=== PATIENT | female | born 1990 | race Caucasian/White ===

== ENCOUNTER 2016-09-02 15:20 | Emergency (ER) | payer BC, OTHER ==
--- NOTE | 2016-09-02 16:03 | ED ---
General Adult HPI - General Chief complaint: Abdominal Pain Stated complaint: cough Time Seen by Provider: 09/02/16 15:49 Source: patient, RN notes reviewed Mode of arrival: ambulatory Limitations: no limitations - History of Present Illness Initial comments: Patient is a 26-year-old female who presents emergency room today with a chief complaint of cough congestion over the last week. She states she is worried about pneumonia as someone that she works with was diagnosed with walking pneumonia. States she's had a cough no sputum production. She states this started with a mild sore throat week ago which has gone away. States she still having this cough which is deep. She denies any other complaints. Does admit that she 17 weeks . States that she's felt some weird movements in her abdomen. Patient denies any other complaints or symptoms. Denies any vaginal bleeding or discharge. Patient denies any recent fever, chills, shortness of breath, chest pain, back pain, nausea or vomiting, numbness or tingling, dysuria or hematuria, constipation or diarrhea, headaches or visual changes, or any other complaints. - Related Data Home Medications Medication Instructions Recorded Confirmed Pnv with Ca,No.72/Iron/FA 1 tab PO DAILY 09/02/16 09/02/16 [ Plus Tablet] Allergies Allergy/AdvReac Type Severity Reaction Status Date / Time clarithromycin [From Biaxin] Allergy Rash/Hives Verified 09/02/16 15:51 Review of Systems ROS Statement: Those systems with pertinent positive or pertinent negative responses have been documented in the HPI. ROS Other: All systems not noted in ROS Statement are negative. Past Medical History Past Medical History: No Reported History History of Any Multi-Drug Resistant Organisms: None Reported Past Surgical History: Section Past Psychological History: No Psychological Hx Reported Smoking Status: Never smoker Past Alcohol Use History: None Reported, Occasional Past Drug Use History: None Reported General Exam - General Exam Comments Initial Comments: General: The patient is awake and alert, in no distress, and does not appear acutely ill. Eye: Pupils are equal, round and reactive to light, extra-ocular movements are intact. No nystagmus. There is normal conjunctiva bilaterally. No signs of icterus. Ears, nose, mouth and throat: There are moist mucous membranes and no oral lesions. Neck: The neck is supple, there is no tenderness or JVD. Cardiovascular: There is a regular rate and rhythm. No murmur, rub or gallop is appreciated. Respiratory: Lungs are clear to auscultation, respirations are non-labored, breath sounds are equal. No wheezes, stridor, rales, or rhonchi. Gastrointestinal: Soft, non-distended, non-tender abdomen without masses or organomegaly noted. There is no rebound or guarding present. No CVA tenderness. Bowel sounds are unremarkable. Musculoskeletal: Normal ROM, no tenderness. Strength 5/5. Sensation intact. Pulses equal bilaterally 2+. Neurological: A&O x 3. CN II-XII intact, There are no obvious motor or sensory deficits. Coordination appears grossly intact. Speech is normal. Skin: Skin is warm and dry and no rashes or lesions are noted. Psychiatric: Cooperative, appropriate mood & affect, normal judgment. Limitations: no limitations Course Vital Signs 09/02/16 15:40 Temperature 98.9 F Pulse Rate 90 Respiratory 20 Rate Blood Pressure 140/72 O2 Sat by Pulse 100 Oximetry Medical Decision Making - Medical Decision Making Patient's heart tones 150s. Patient denies any shortness of breath. No pleuritic pain. Vitals are stable. Patient does admit to cough congestion started with a sore throat. It was discussed about possible bronchitis. Was discussed about x-ray. Patient's 17 weeks . No vaginal bleeding or discharge. Patient denies most likely viral infection. She states like to hold on x-ray. Hold any antibiotics. Comfortable following up over the next 2 days. Advised return if any symptoms increase or worsen. Disposition Clinical Impression: Upper respiratory infection Disposition: HOME SELF-CARE Condition: Good Instructions: Upper Respiratory Infection (ED) Additional Instructions: Please follow-up with family doctor in the next 2 days of symptoms have not improved. Please return to emergency room if the symptoms increase or worsen or for any other concerns. Time of Disposition: 17:20
[2016-09-02 17:33] VITALS: BP 121/67; PULSE 69; RESP 18; TEMP 97.3
== END 2016-09-02 17:32 | disposition home or self-care (01) ==
LOC: EC 15:20
DX: O99.512 Diseases of the respiratory system complicating pregnancy, second trimester (principal); J06.9 Acute upper respiratory infection, unspecified; Z3A.17 17 weeks gestation of pregnancy; Z88.2 Allergy status to sulfonamides
CPT/HCPCS: 99283

== ENCOUNTER 2017-02-01 07:51 | Inpatient (IN) | payer BC, OTHER ==
[2017-02-01] MEDS ORDERED: CITRIC ACID-SODIUM CITRATE 15 ML CUP PO ONE (08:31)
[2017-02-01] MEDS ORDERED: LACTATED RINGERS 1,000 ML IV ONE (08:31)
[2017-02-01 08:46] LABS: Basophils % (A) 0 %; CHCM 33.4; Eosinophils # (A) 0.1 k/uL (0-0.7); Eosinophils % (A) 1 %; HCT 33.8 % (34.0-46.0); HDW 3.24; HGB 11.3 gm/dL (11.4-16.0); Luc # (Auto) 0.16; Luc % (Auto) 2; Lymphocytes # (A) 1.4 k/uL (1.0-4.8); Lymphocytes % (A) 18 %; MCH 29.1 pg (25.0-35.0); MCHC 33.4 g/dL (31.0-37.0); MCV 87.1 fL (80.0-100.0); Mean Platelet Volume 8.1; Monocytes # (A) 0.4 k/uL (0-1.0); Monocytes % (A) 6 %; Neutrophils # (A) 5.7 k/uL (1.3-7.7); Neutrophils % (A) 74 %; RBC 3.88 m/uL (3.80-5.40); RDW 14.8 % (11.5-15.5); WBC 7.7 k/uL (3.8-10.6); WBC (Perox) 7.98
[2017-02-01 08:59] VITALS: BMI 45.2
[2017-02-01] MEDS ORDERED: ceFAZolin 2 GM in SODIUM CHLORIDE 0.9% 100 ML IVPB ONE (09:18)
--- NOTE | 2017-02-01 09:37 | P.HPOB ---
History of Present Illness H&P Date: 02/01/17 Chief Complaint: Here for elective repeat This is a 26-year-old white female 2 para 1001 EDC 02/08/2017 at 39 weeks gestation. Patient presents this morning for repeat low transverse section, she has been counseled thoroughly and is declining the option for . She had a prior section in 2009. She is declining option for tubal ligation. She has been having rare irregular contractions. history blood type is A+ rubella status immune. Group B strep cultures negative. Gonorrhea and chlamydia cultures, hepatitis B surface antigen, HIV testing, VDRL all negative. One-hour Glucola 104. Past medical history is essentially negative. Past surgical history section 2009. Current medications vitamins daily. ALLERGIES include clindamycin to which reports hives and rash. Social history patient is single, she is a nonsmoker, she denies alcohol or drug use with this . On exam this is a pleasant white female 5 foot 5 inches 272 pounds blood pressure 117/79 vital signs are otherwise stable and the patient is afebrile. The general physical exam is within normal limits. The abdomen is obviously gravid, fundal height is 40 cm, vertex presentation to Samuel's maneuvers. Cervix is long closed posterior. heart rate is consistent with reactive NST. Extremities reveal no edema. Chest is clear. Impression: 39 week intrauterine , previous section declining , here for repeat low transverse section, declining tubal ligation. Plan: We will proceed with repeat low transverse section. Patient is aware of all risks benefits and alternatives. All questions answered. Review of Systems Constitutional: Reports as per HPI Past Medical History Past Medical History: No Reported History History of Any Multi-Drug Resistant Organisms: None Reported Past Surgical History: Section Past Anesthesia/Blood Transfusion Reactions: No Reported Reaction Past Psychological History: No Psychological Hx Reported Smoking Status: Never smoker Past Alcohol Use History: None Reported Past Drug Use History: None Reported - Past Family History Mother Family Medical History: No Reported History Father Family Medical History: Hypertension Medications and Allergies Home Medications Medication Instructions Recorded Confirmed Type Pnv,Calcium 72/Iron/Folic Acid 1 tab PO DAILY 09/02/16 01/31/17 History [ Plus Tablet] Allergies Allergy/AdvReac Type Severity Reaction Status Date / Time clarithromycin [From Biaxin] Allergy Rash/Hives Verified 02/01/17 08:30 Exam - Vital Signs Vital signs: Vital Signs Temp Pulse Resp BP 02/01/17 08:29 97.3 F L 106 H 16 117/79 Intake and Output 01/31/17 02/01/17 02/01/17 22:59 06:59 14:59 Other: Weight 123.377 kg Patient Weight 02/02/17 06:59 Weight 123.377 kg See full dictation under HPI please Results Result Diagrams: 02/01/17 08:10 Abnormal Lab Results - Last 24 Hours (Table) 02/01/17 Range/Units 08:10 Hgb 11.3 L (11.4-16.0) gm/dL Hct 33.8 L (34.0-46.0) % Assessment and Plan Plan: For repeat low transverse section. All risks benefits and alternatives once again reviewed. Time with Patient: Less than 30
[2017-02-01] MEDS: LACTATED RINGERS 1,000 ML IV SCH (09:40)
[2017-02-01] MEDS ORDERED: PHENYLEPHRINE-0.9% NACL SYG 1 MG/10 ML SYRINGE ONE (09:45)
[2017-02-01] MEDS ORDERED: ePHEDrine 50 MG/ML 1 ML AMP ONE (09:45)
[2017-02-01] MEDS ORDERED: MORPHINE SULFATE (PF) 0.3 MG/0.3 ML SYR ONE (09:45)
[2017-02-01] MEDS ORDERED: NALBUPHINE 10 MG/ML AMPUL ONE (09:45)
[2017-02-01] MEDS ORDERED: OXYTOCIN 10 UNIT/ML 1 ML VIAL ONE (09:45)
[2017-02-01] MEDS ORDERED: ONDANSETRON 4 MG/2 ML VIAL ONE (09:45)
[2017-02-01] MEDS ORDERED: SIMETHICONE 80 MG CHEWABLE PO PRN (10:45)
[2017-02-01] MEDS ORDERED: ACETAMINOPHEN TAB 325 MG TAB PO PRN (10:45)
[2017-02-01] MEDS ORDERED: diphenhydrAMINE 50 MG CAP PO PRN (10:45)
[2017-02-01] MEDS ORDERED: ZOLPIDEM 5 MG TAB PO PRN (10:45)
[2017-02-01] MEDS ORDERED: diphenhydrAMINE 25 MG CAP PO PRN (10:45)
[2017-02-01] MEDS ORDERED: diphenhydrAMINE 50 MG/ML 1 ML VIAL IVP PRN ×2 (10:45)
[2017-02-01] MEDS ORDERED: NALOXONE 0.4 MG/ML 1 ML VIAL IV PRN (10:45)
[2017-02-01] MEDS ORDERED: HYDROmorphone PCA 5 MG/25 ML SYRINGE IV PRN (10:45)
[2017-02-01] MEDS ORDERED: ONDANSETRON 4 MG/2 ML VIAL IVP PRN (10:45)
[2017-02-01] MEDS ORDERED: METOCLOPRAMIDE 5 MG/ML 2 ML VIAL IVP PRN (10:45)
--- NOTE | 2017-02-01 10:45 | P.OP ---
Date of Procedure: 02/01/17 Preoperative Diagnosis: 39 week intrauterine , previous section, declining Postoperative Diagnosis: Repeat low transverse section, unremarkable, nuchal cord 1, liveborn male infant Procedure(s) Performed: Repeat low transverse section Implants: Anesthesia: spinal Surgeon: Taty Walden Editor Index #1: Selene Musa Estimated Blood Loss (ml): 600 IV fluids (ml): 600 Urine output (ml): 100 Pathology: other (Placenta) Condition: stable Disposition: PACU Indications for Procedure: Operative Findings: Description of Procedure: Patient is brought to the operating suite where a spinal analgesia with Duramorph is administered. Patient was placed in the dorsal supine position with left lateral uterine displacement. The abdomen is prepped and draped in usual sterile fashion. Analgesia is checked and noted to be adequate. The appropriate timeout is performed to assure proper patient and procedural identification. 2 g of Ancef are given. A low transverse skin incision is made in this is carried down through the subcutaneous tissue which is approximate 6 cm deep. The fascia is isolated, scored and extended bilaterally with curved Diego scissors. Peritoneum is next identified and incised, there is no bowel or bladder involvement. Bladder flap is brought down from previous scarring, bladder is well mobilized and at all times swept well from the operative field to avoid bladder and/or ureteral injury. A repeat low transverse uterine incision is made. This is carried down to this endometrial cavity, and extended bilaterally bluntly. Artificial amniorrhexis reveals clear fluid. is delivered in the right occiput transverse position. There is a nuchal cord 1. The oropharynx, and external nares and nasopharynx were all bulb suctioned. Patient is officially delivered of a male infant at 1005 hrs. Umbilical cord is doubly clamped and ligated, he is handed to waiting nurses for evaluation where scores of 8 and 9 at one and 5 minutes respectively are given. The placenta is delivered manually, it is inspected and noted to be intact with trivascular cord at 1006 hrs. The uterus is then externalized. The edges are grasped with Yen clamps. The uterus is swept clean with a sterile sponge to avoid any retained products of conception. The uterus is closed in a two-step fashion, first layer running locking, second layer imbricated, both with 0 Vicryl suture for excellent reapproximation and hemostasis. Bilateral tubes and ovaries are inspected and noted to be normal. Abdomen is suctioned with suction on guard and the uterus is gently placed back into the abdominal cavity. Bilateral gutters are inspected and cleaned. Peritoneum is allowed to close by secondary intention. Fascia is closed in a running stitch, over ligation in the midline. Subcutaneous tissue is irrigated , noted to be clean and dry. It is reapproximated with 3-0 Vicryl in a running fashion. 4-0 undyed Vicryl issues with a final subcuticular stitch for excellent reapproximation of the skin. Steri-Strips and Mastisol are applied to the wound. Sterile dressing is applied. Uterus is then massaged. No lochia is noted, therefore I dilate the cervix manually for a minimal to moderate amount of lochia. Urine is clear in the Li tube as well as in the bag. All sponge needle and enhancement counts are correct at the end of the procedure. Patient is brought back to the recovery room in stable condition with stable vital signs blood pressure 118/58, pulse 81, respirations 16, 100% O2 saturation. Complications none. Patient is requesting circumcision for her son.
[2017-02-01] MEDS: SENNOSIDES-DOCUSATE SODIUM 1 EACH TAB PO SCH (19:42)
[2017-02-01] MEDS: KETOROLAC 30 MG/ML 1 ML VIAL IVP PRN (19:42)
[2017-02-01 19:51] VITALS: RESP 16
[2017-02-02] MEDS: Acetaminophen-Codeine 300-30mg TAB PO PRN ×3 (00:24→20:30)
[2017-02-02] MEDS: KETOROLAC 30 MG/ML 1 ML VIAL IVP PRN (05:30)
[2017-02-02] MEDS: LACTATED RINGERS 1,000 ML IV SCH ×2 (06:04→06:05)
[2017-02-02 09:23] LABS: Basophils % (A) 0 %; CH 28.7; CHCM 31.5; Eosinophils % (A) 1 %; HGB 10.3 gm/dL (11.4-16.0); Hypochromasia Slight; Luc # (Auto) 0.09; Luc % (Auto) 1; Lymphocytes # (A) 1.1 k/uL (1.0-4.8); Lymphocytes % (A) 16 %; MCH 29.5 pg (25.0-35.0); MCHC 32.2 g/dL (31.0-37.0); MCV 91.5 fL (80.0-100.0); Mean Platelet Volume 8.5; Monocytes # (A) 0.4 k/uL (0-1.0); Monocytes % (A) 5 %; Neutrophils # (A) 5.3 k/uL (1.3-7.7); Neutrophils % (A) 77 %; WBC 6.9 k/uL (3.8-10.6); WBC (Perox) 7.41
--- NOTE | 2017-02-02 09:53 | P.PN ---
Subjective Principal diagnosis: Postoperative day #1 Slept well, lochia moderate, pain well controlled, no complaints, positive flatus. Objective - Vital Signs Vital signs: Vital Signs Temp 98.5 F 02/02/17 08:00 Pulse 80 02/02/17 08:00 Resp 16 02/02/17 08:00 BP 107/66 02/02/17 08:00 Pulse Ox 99 02/01/17 19:48 Intake & Output 02/01/17 02/02/17 02/02/17 18:59 06:59 18:59 Output Total 2200 500 Balance -2200 -500 Weight 123.377 kg Output: Urine 1600 500 Uretheral (Li) 600 Estimated Blood Loss 600 Other: # Voids 1 - Constitutional General appearance: Present: average body habitus, cooperative - EENT Eyes: Present: PERRLA ENT: Present: hearing grossly normal - Neck Neck: Present: normal ROM Thyroid: bilateral: normal size - Respiratory Respiratory: bilateral: CTA - Cardiovascular Rhythm: regular - Gastrointestinal General gastrointestinal: Present: normal bowel sounds - Genitourinary Genitourinary Comment(s): Undescended firm, midline, symmetric, nontender, 18 week size - Integumentary Integumentary Comment(s): Incision clean and dry, intact, Steri-Strips applied, well approximated. - Neurologic Neurologic: Present: CNII-XII intact - Musculoskeletal Musculoskeletal: Present: gait normal, strength equal bilaterally - Psychiatric Psychiatric: Present: A&O x's 3, appropriate affect, intact judgment & insight - Labs CBC & Chem 7: 02/02/17 08:05 Labs: Abnormal Lab Results - Last 24 Hours (Table) 02/02/17 Range/Units 08:05 RBC 3.50 L (3.80-5.40) m/uL Hgb 10.3 L (11.4-16.0) gm/dL Hct 32.0 L (34.0-46.0) % Assessment and Plan Plan: Continue postoperative care. Circumcision now. Likely discharge home tomorrow. Time with Patient: Less than 30
[2017-02-02] MEDS: IBUPROFEN 600 MG TAB PO PRN ×2 (10:18→17:41)
--- NOTE | 2017-02-02 15:38 | P.PN ---
Progress Note - Text Date:02/02 Time:1526 Patient is status post . Patient seen this morning with VAS score of 2. c/o of pruritus, c/o nausea/vomiting, comfortable and doing better today.
[2017-02-02] MEDS: SENNOSIDES-DOCUSATE SODIUM 1 EACH TAB PO SCH (19:53)
[2017-02-03] MEDS: IBUPROFEN 600 MG TAB PO PRN ×3 (00:46→11:36)
--- NOTE | 2017-02-03 07:02 | P.DS ---
Providers Date of admission: 02/01/17 07:51 Expected date of discharge: 02/03/17 Attending physician: Taty Walden Primary care physician: [facility] Course: This is a 26-year-old white female 2 para 1001 EDC 02/08/2017 at 39 weeks gestation. Patient presented after an unremarkable course for repeat section. She declined the option for . She declined the option for tubal ligation. Her blood type is A+, group B strep cultures negative. Please see my dictated history and physical for details. She underwent a low-transverse section and delivered a liveborn male infant with scores of 8 and 9 at one and 5 minutes respectively. weighed 7 lbs. 11 oz. or 3500 g. There was an estimated blood loss recorded of 600 mL's. There was a nuchal cord 1. Please see my dictated operative note for details. This morning the patient is doing well. She is voiding, ambulating and passing flatus without difficulty. Vital signs are stable and she is afebrile. Fundus is firm and in the midline, symmetric and 18 week size. Extremities are negative for edema. Breasts are not engorged. is doing well, circumcision has been performed. There is minimal to moderate lochia rubra. The abdominal incision is well approximated, clean and dry, Steri-Strips applied. Patient is being discharged home in very good condition. She will follow-up with me in the office in 2 weeks. I have reminded her no intercourse, tampons or douching. She will use [id number] ibuprofen products, 200 mg pills, for every 8 hours as needed for pain. I've asked her to call me with any fevers shakes or chills, foul smelling or copious lochia, with the passage of large blood clots, with any pain not alleviated by ibuprofen, or indeed with any concerns. She is bottlefeeding. She will continue taking her vitamin every day. No driving for 2 weeks. No heavy lifting. We have briefly reviewed the options for contraception and we will discuss this further in the office. Patient Condition at Discharge: Good Plan - Discharge Summary New Discharge Prescriptions: No Action Pnv,Calcium 72/Iron/Folic Acid [ Plus Tablet] 1 tab PO DAILY Discharge Medication List Pnv,Calcium 72/Iron/Folic Acid [ Plus Tablet] 1 tab PO DAILY 09/02/16 [ History] Follow up Appointment(s)/Referral(s): Taty Walden MD [STAFF PHYSICIAN] - 2 Weeks Discharge Disposition: HOME SELF-CARE
[2017-02-03] MEDS: Acetaminophen-Codeine 300-30mg TAB PO PRN (08:19)
[2017-02-03 08:55] VITALS: BP 118/75; PULSE 74; TEMP 97.5
== END 2017-02-03 12:00 | disposition home or self-care (01) | DRG 766 ==
LOC: 4FBP 07:51
PROVIDERS: ADMIT Obstetrics & Gynecology; ATTEND Obstetrics & Gynecology
PROC: 10D00Z1 Extraction of Products of Conception, Low, Open Approach (ICD-10-PCS; principal; 2017-02-01 10:00)
DX: O34.211 Maternal care for low transverse scar from previous cesarean delivery (principal); O69.81X0 Labor and delivery complicated by cord around neck, without compression, not applicable or unspecified; Z37.0 Single live birth; Z3A.39 39 weeks gestation of pregnancy; L29.9 Pruritus, unspecified; Z79.899 Other long term (current) drug therapy
CPT/HCPCS: 85025; 86850; 86900; 86901; 88307

== ENCOUNTER 2017-04-29 17:19 | Emergency (ER) | payer BC, OTHER ==
[2017-04-29] MEDS ORDERED: HYDROmorphone 1 MG/ML 1 ML SYRINGE IVP STA (17:55)
[2017-04-29] MEDS ORDERED: SODIUM CHLORIDE 0.9% 1,000 ML IV STA (17:55)
[2017-04-29] MEDS ORDERED: ONDANSETRON 4 MG/2 ML VIAL IVP STA (17:55)
--- NOTE | 2017-04-29 18:13 | ED ---
General Adult HPI - General Chief complaint: Abdominal Pain Stated complaint: Abd pain Time Seen by Provider: 04/29/17 17:40 Source: patient, RN notes reviewed, old records reviewed Mode of arrival: ambulatory Limitations: no limitations - History of Present Illness Initial comments: If complaint history of present illness a 27-year-old female here with a complaint of acute pain that started at 3 AM this morning. Followed by diarrhea. Patient doesn't past history of IBS.Loose stool for the past several hours. She describes it as sharp contraction-like pains. Emergency room temperature 100.7. - Related Data Previous Rx's Medication Instructions Recorded Ciprofloxacin HCl [Cipro] 500 mg PO Q12HR #10 tablet 04/29/17 Allergies Allergy/AdvReac Type Severity Reaction Status Date / Time clarithromycin [From Biaxin] Allergy Swelling Verified 04/29/17 18:11 Review of Systems ROS Statement: Those systems with pertinent positive or pertinent negative responses have been documented in the HPI. History of systems no visual acuity changes no headache no chest pain no shortness of breath. She has abdominal discomfort admitted abdomen suprapubic region. Nauseated but no vomiting loose stool earlier today. No blood noted in the stool. Decreased appetite. She did take ibuprofen without relief of discomfort. All systems were reviewed past medical problems no chronic medical problems. Other than 1 episode of IBS. Surgeries 2 C-sections last one approximately 10 weeks ago. Family history no cancers known to her. She has ALLERGIES to clarithromycin. Nonsmoker nondrinker. ROS Other: All systems not noted in ROS Statement are negative. Past Medical History Past Medical History: No Reported History History of Any Multi-Drug Resistant Organisms: None Reported Past Surgical History: Section Past Anesthesia/Blood Transfusion Reactions: No Reported Reaction Past Psychological History: No Psychological Hx Reported Smoking Status: Never smoker Past Alcohol Use History: None Reported Past Drug Use History: None Reported - Past Family History Mother Family Medical History: No Reported History Father Family Medical History: Hypertension General Exam - General Exam Comments Initial Comments: General: The patient is awake and alert, into abdominal discomfort. With fever. Vital signs temp 100.7 pulse 142 respiratory rate 16 pulse ox 99% room air blood pressure 126/81 Eye: Pupils are equal, round and reactive to light, extra-ocular movements are intact ; there is normal conjunctiva bilaterally. No signs of icterus. Ears, nose, mouth and throat: There are moist mucous membranes and no oral lesions. Neck: The neck is supple, there is no tenderness on the no anterior cervical lymphadenopathy, thyroid not enlarged. Cardiovascular: Tachycardic heart rate, 142. No murmur, rub or gallop is appreciated. Respiratory: Lungs are clear to auscultation, respirations are non-labored, breath sounds are equal. No wheezes, stridor, rales, or rhonchi. Gastrointestinal: Tenderness with deep palpation from the mid abdomen to the left and right lower quadrants. Back: There is no tenderness to palpation in the midline. There is no obvious deformity. No rashes noted. Musculoskeletal: Normal ROM, no tenderness, There is no pedal edema. There is no calf tenderness or swelling. Sensation intact. Pulses equal bilaterally 2+. Neurological: No neuro deficits complained of or noted. Skin: Skin is warm and dry and no rashes or lesions are noted. Limitations: no limitations Course Vital Signs 04/29/17 04/29/17 04/29/17 17:24 19:04 20:04 Temperature 100.7 F H 98.3 F 101.4 F H Pulse Rate 142 H 105 H 99 Respiratory 16 16 16 Rate Blood Pressure 126/81 130/59 135/65 O2 Sat by Pulse 99 99 99 Oximetry 04/29/17 22:44 Temperature 98.7 F Pulse Rate 81 Respiratory 16 Rate Blood Pressure 009/71 O2 Sat by Pulse 98 Oximetry Medical Decision Making - Medical Decision Making Medical decision making; the patient's white count 7.4 hemoglobin 12 medical 38 , potassium 4.0 with a BUN 11 creatinine 0.7 GFR greater than 60. Glucose 104. Amylase lipase normal limits. Urine clean no signs of infection. Urine test negative. Trays of the abdomen done and reviewed by radiologist his findings are there is a nonspecific, nonobstructive, bowel gas pattern. There was questionable bowel wall thickening noted in the ascending colon. This is only seen on one view. There is no evidence of impaction or obstruction. Phleboliths are noted in the pelvis. Impression; nonspecific bowel gas pattern. As read by Dr. Boles Patient has CT of the abdomen with IV and oral contrast. The positive findings include stomach and bowel. Wall thickening of the distal small bowel and terminal ileum seen with surrounding mild inflammatory changes, likely representing infectious versus inflammatory enteritis. No obstruction. No evidence of acute fluid collection. Normal appendix is seen. Spleen the spleen is mildly enlarged, measuring up to 14.4 cm in greatest craniocaudad dimensions, of unknown etiology. This was discussed with the patient she'll follow-up with family physician concerning this for further evaluation as needed. Final impression reactive mesenteric lymph nodes. Mild splenomegaly of unknown significance. Small amount of pelvic fluid which is likely physiologic versus related to the above-mentioned pathology. The above-mentioned pathology was wall thickening of the distal small bowel and terminal ileum with surrounding mild inflammatory changes, likely representing infectious versus inflammatory enteritis. And a probable 2.6 and left ovarian cyst as read by Dr. levy Patient states she is feeling better. She was rehydrated the emergency room. Labs as noted above were discussed with the patient she will be placed on Cipro 500 twice a day for 5 days - Lab Data Result diagrams: 04/29/17 18:21 04/29/17 18:21 Lab Results 04/29/17 04/29/17 04/29/17 Range/Units 18:21 18:21 18:21 WBC 7.4 (3.8-10.6) k/uL RBC 4.39 (3.80-5.40) m/uL Hgb 12.6 (11.4-16.0) gm/dL Hct 38.7 (34.0-46.0) % MCV 88.2 (80.0-100.0) fL MCH 28.7 (25.0-35.0) pg MCHC 32.6 (31.0-37.0) g/dL RDW 16.0 H (11.5-15.5) % Plt Count 270 (150-450) k/uL Neutrophils % 79 % Lymphocytes % 15 % Monocytes % 4 % Eosinophils % 1 % Basophils % 1 % Neutrophils # 5.8 (1.3-7.7) k/uL Lymphocytes # 1.1 (1.0-4.8) k/uL Monocytes # 0.3 (0-1.0) k/uL Eosinophils # 0.1 (0-0.7) k/uL Basophils # 0.0 (0-0.2) k/uL Sodium 137 (137-145) mmol/L Potassium 4.0 (3.5-5.1) mmol/L Chloride 103 (98-107) mmol/L Carbon Dioxide 25 (22-30) mmol/L Anion Gap 9 mmol/L BUN 11 (7-17) mg/dL Creatinine 0.70 (0.52-1.04) mg/dL Est GFR (MDRD) Af Amer >60 (>60 ml/min/1.73 sqM) Est GFR (MDRD) Non-Af >60 (>60 ml/min/1.73 sqM) Glucose 104 H (74-99) mg/dL Plasma Lactic Acid Marvin 1.2 (0.7-2.0) mmol/L Calcium 9.5 (8.4-10.2) mg/dL Total Bilirubin 0.7 (0.2-1.3) mg/dL AST 19 (14-36) U/L ALT 25 (9-52) U/L Alkaline Phosphatase 64 (38-126) U/L Total Protein 7.9 (6.3-8.2) g/dL Albumin 4.1 (3.5-5.0) g/dL Amylase 60 (30-110) U/L Lipase 104 (23-300) U/L Urine Color Urine Appearance (Clear) Urine pH (5.0-8.0) Ur Specific [place] (1.001-1.035) Urine Protein (Negative) Urine Glucose (UA) (Negative) Urine Ketones (Negative) Urine Blood (Negative) Urine Nitrite (Negative) Urine Bilirubin (Negative) Urine Urobilinogen (<2.0) mg/dL Ur Leukocyte Esterase (Negative) Urine HCG, Qual (Not Detectd) 04/29/17 04/29/17 Range/Units 19:30 19:30 WBC (3.8-10.6) k/uL RBC (3.80-5.40) m/uL Hgb (11.4-16.0) gm/dL Hct (34.0-46.0) % MCV (80.0-100.0) fL MCH (25.0-35.0) pg MCHC (31.0-37.0) g/dL RDW (11.5-15.5) % Plt Count (150-450) k/uL Neutrophils % % Lymphocytes % % Monocytes % % Eosinophils % % Basophils % % Neutrophils # (1.3-7.7) k/uL Lymphocytes # (1.0-4.8) k/uL Monocytes # (0-1.0) k/uL Eosinophils # (0-0.7) k/uL Basophils # (0-0.2) k/uL Sodium (137-145) mmol/L Potassium (3.5-5.1) mmol/L Chloride (98-107) mmol/L Carbon Dioxide (22-30) mmol/L Anion Gap mmol/L BUN (7-17) mg/dL Creatinine (0.52-1.04) mg/dL Est GFR (MDRD) Af Amer (>60 ml/min/1.73 sqM) Est GFR (MDRD) Non-Af (>60 ml/min/1.73 sqM) Glucose (74-99) mg/dL Plasma Lactic Acid Marvin (0.7-2.0) mmol/L Calcium (8.4-10.2) mg/dL Total Bilirubin (0.2-1.3) mg/dL AST (14-36) U/L ALT (9-52) U/L Alkaline Phosphatase (38-126) U/L Total Protein (6.3-8.2) g/dL Albumin (3.5-5.0) g/dL Amylase (30-110) U/L Lipase (23-300) U/L Urine Color Yellow Urine Appearance Clear (Clear) Urine pH 5.5 (5.0-8.0) Ur Specific [place] 1.013 (1.001-1.035) Urine Protein Negative (Negative) Urine Glucose (UA) Negative (Negative) Urine Ketones Negative (Negative) Urine Blood Negative (Negative) Urine Nitrite Negative (Negative) Urine Bilirubin Negative (Negative) Urine Urobilinogen <2.0 (<2.0) mg/dL Ur Leukocyte Esterase Negative (Negative) Urine HCG, Qual Not Detected (Not Detectd) Disposition Clinical Impression: Infectious enteritis Disposition: HOME SELF-CARE Condition: Fair Instructions: Abdominal Pain in Children (ED), Traveler's Diarrhea (ED), Nutrition Tips for Relief of Diarrhea (ED) Additional Instructions: Take Pepto-Bismol, increase fluids, take Cipro twice day for 5 days. Follow-up with his family physician for evaluation of mildly enlarged spleen. Take Tylenol for pain and fever Prescriptions: Ciprofloxacin HCl [Cipro] 500 mg PO Q12HR #10 tablet Referrals: Omero Carlos DO [Primary Care Provider] - 1-2 days Time of Disposition: 23:26
[2017-04-29 18:30] LABS: Basophils % (A) 1 %; CH 29.6; CHCM 33.7; Eosinophils # (A) 0.1 k/uL (0-0.7); Eosinophils % (A) 1 %; HCT 38.7 % (34.0-46.0); HDW 2.92; HGB 12.6 gm/dL (11.4-16.0); Luc # (Auto) 0.13; Luc % (Auto) 2; Lymphocytes # (A) 1.1 k/uL (1.0-4.8); Lymphocytes % (A) 15 %; MCH 28.7 pg (25.0-35.0); MCHC 32.6 g/dL (31.0-37.0); MCV 88.2 fL (80.0-100.0); Mean Platelet Volume 8.1; Monocytes # (A) 0.3 k/uL (0-1.0); Monocytes % (A) 4 %; Neutrophils # (A) 5.8 k/uL (1.3-7.7); Neutrophils % (A) 79 %; RBC 4.39 m/uL (3.80-5.40); WBC 7.4 k/uL (3.8-10.6)
[2017-04-29 18:40] LABS: ALT 25 U/L (9-52); AST 19 U/L (14-36); Alkaline Phosphatase 64 U/L (38-126); Amylase 60 U/L (30-110); Anion Gap 9 mmol/L; Blood Urea Nitrogen 11 mg/dL (7-17); Calcium 9.5 mg/dL (8.4-10.2); Carbon Dioxide 25 mmol/L (22-30); Chloride 103 mmol/L (98-107); Glucose 104 mg/dL (74-99); Non-African American GFR(MDRD) >60 (>60 ml/min/1.73 sqM); Sodium 137 mmol/L (137-145); Total Bilirubin 0.7 mg/dL (0.2-1.3); Total Protein 7.9 g/dL (6.3-8.2)
[2017-04-29 19:50] LABS: Appearance,Urine Clear (Clear); Bilirubin,Urine Negative (Negative); Glucose,Urine (UA) Negative (Negative); Ketones,Urine Negative (Negative); Leukocyte Esterase,Urine Negative (Negative); Nitrite,Urine Negative (Negative); PH, Urine 5.5 (5.0-8.0); Protein,Urine Negative (Negative); Specific Gravity,Urine 1.013 (1.001-1.035); UA Billing (MACRO vs. MICRO) CHEM; Urobilinogen,Urine <2.0 mg/dL (<2.0)
--- NOTE | 2017-04-29 20:08 | XR ---
Exam: Abdomen 2 view. TECHNIQUE: 3 views the abdomen were obtained. HISTORY: Abdominal pain. FINDINGS: There is a nonspecific, nonobstructive, bowel gas pattern. There is questionable bowel wall thickenin g noted in the ascending colon. This is only seen on one view. There is no evidence of impaction or o bstruction. Phleboliths are noted in the pelvis. IMPRESSION: Nonspecific bowel gas pattern.
[2017-04-29] MEDS ORDERED: KETOROLAC 30 MG/ML 1 ML VIAL IVP STA (20:12)
[2017-04-29] MEDS ORDERED: IOHEXOL 350 MG/ML 25 ML BOTTLE (ORAL USE) PO PRN (20:13)
[2017-04-29] MEDS ORDERED: RX INFO: IV CONTRAST WAS GIVEN 1 EACH MISC MISCELLANE PRN (20:13)
--- NOTE | 2017-04-29 23:11 | CT ---
EXAM: CT Abdomen and Pelvis With Intravenous Contrast CLINICAL HISTORY: Abdominal pain with diarrhea. TECHNIQUE: Axial computed tomography images of the abdomen and pelvis with intravenous contrast. CTDI is 50.40 mGy and DLP is 2072.10 mGy-cm. This CT exam was performed using one or more of the following dose reduction techniques: automated exposure control, adjustment of the mA and/or kV according to patient size, and/or use of iterative reconstruction technique. COMPARISON: No relevant prior studies available. FINDINGS: Lower thorax: No acute findings. ABDOMEN: Liver: Probable John's lobe is seen. No mass. Gallbladder and bile ducts: Unremarkable. No calcified stones. No ductal dilation. Pancreas: Unremarkable. No mass. No ductal dilation. Spleen: The spleen is mildly enlarged, measuring up to 14.4 in greatest craniocaudad dimension, of unknown significance. Adrenals: Unremarkable. No mass. Kidneys and ureters: Unremarkable. No solid mass. No hydronephrosis. Stomach and bowel: Wall thickening of the distal small bowel and terminal ileum is seen with surrounding mild inflammatory changes, likely representing infectious versus inflammatory enteritis. No obstruction. No evidence of acute fluid collection. Appendix: A normal appendix is seen. PELVIS: Bladder: Unremarkable. No mass. Reproductive: Probable 2.6 cm left ovarian cyst. Probable small additional fibroid in the anterior uterine body. ABDOMEN and PELVIS: Intraperitoneal space: A small amount of pelvic free fluid is seen, which is likely physiologic versus related to the above mentioned pathology. No free air. Bones/joints: No acute fracture. No dislocation. Soft tissues: Unremarkable. Vasculature: Unremarkable. No abdominal aortic aneurysm. Lymph nodes: Mildly prominent mesenteric lymph nodes are noted, predominantly involving the right lower quadrant, measuring up to 1.2 cm in short axis, likely reactive. Shotty retroperitoneal lymph nodes, of unknown significance. IMPRESSION: 1. Wall thickening of the distal small bowel and terminal ileum with surrounding mild inflammatory changes, likely representing infectious versus inflammatory enteritis. 2. Likely reactive mesenteric lymph nodes. 3. Mild splenomegaly, of unknown significance. 4. Small amount of pelvic free fluid, which is likely physiologic versus related to the above mentioned pathology. 5. Probable 2.6 cm left ovarian cyst.
[2017-04-29] MEDS ORDERED: CIPROFLOXACIN HCL 500 MG TAB PO STA (23:24)
[2017-04-29 23:35] VITALS: BP 127/60; PULSE 83; RESP 18; TEMP 98.9
== END 2017-04-29 23:45 | disposition home or self-care (01) ==
LOC: EC 17:19
DX: A09 Infectious gastroenteritis and colitis, unspecified (principal); I88.0 Nonspecific mesenteric lymphadenitis; R16.1 Splenomegaly, not elsewhere classified; Z88.1 Allergy status to other antibiotic agents
CPT/HCPCS: 36415; 80053; 82150; 83605; 83690; 85025; 81003; 81025; 87086; 74020; 74177; 99285; 96374; 96375 ×2; 96361; J2405; J1885; J1170; Q9967

== ENCOUNTER → 2017-08-30 | Outpatient (CLI) | payer BC, OTHER ==
[2017-08-30 13:02] LABS: Basophils % (A) 1 %; Eosinophils # (A) 0.2 k/uL (0-0.7); Eosinophils % (A) 2 %; HCT 41.4 % (34.0-46.0); HGB 12.5 gm/dL (11.4-16.0); Hypochromasia Slight; Lymphocytes # (A) 2.2 k/uL (1.0-4.8); Lymphocytes % (A) 27 %; MCHC 30.2 g/dL (31.0-37.0); MCV 92.8 fL (80.0-100.0); Mean Platelet Volume 7.6; Monocytes # (A) 0.3 k/uL (0-1.0); Monocytes % (A) 4 %; Neutrophils # (A) 5.2 k/uL (1.3-7.7); Neutrophils % (A) 65 %; Platelet Count 314 k/uL (150-450); RBC 4.46 m/uL (3.80-5.40); RDW 15.9 % (11.5-15.5)
[2017-08-30 13:31] LABS: ALT 45 U/L (9-52); AST 24 U/L (14-36); Albumin 4.4 g/dL (3.5-5.0); Alkaline Phosphatase 56 U/L (38-126); Anion Gap 11 mmol/L; Blood Urea Nitrogen 21 mg/dL (7-17); C Reactive Protein 19.3 mg/L (<10.0); Calcium 10.3 mg/dL (8.4-10.2); Carbon Dioxide 29 mmol/L (22-30); Chloride 102 mmol/L (98-107); Glucose 103 mg/dL (74-99); Potassium 4.5 mmol/L (3.5-5.1); Sodium 142 mmol/L (137-145); Total Bilirubin 0.4 mg/dL (0.2-1.3); Total Protein 8.4 g/dL (6.3-8.2)
[2017-08-30 13:45] LABS: T4, Free (Free Thyroxine) 1.23 ng/dL (0.78-2.19)
[2017-08-30 14:09] LABS: Erythrocyte Sedimentation Rate 42 mm/hr (0-20)
== END | disposition home or self-care (01) ==
LOC: LABWHC1 12:21
PROVIDERS: ATTEND Internal Medicine Gastroenterology
DX: R10.30 Lower abdominal pain, unspecified (principal); R53.83 Other fatigue
CPT/HCPCS: 36415; 80053; 83516; 84439; 84443; 84481; 85025; 85652; 86140

== ENCOUNTER → 2018-06-16 | Outpatient (CLI) | payer BC ==
[2018-06-16 14:22] VITALS: BP 97/59; PULSE 71; TEMP 97.8; BMI 52.7
--- NOTE | 2018-06-16 16:28 | P.HPBAR ---
Bariatric H&P - History & Physicial H&P Date: 06/16/18 History & Physicial: Visit/CC: sleeve consult Patient initial contact: Initial weight: 122.47 kg Initial weight in pounds: 270.00 Height: 5 ft Initial BMI: 52.7 Last weight: Current weight: 122.47 kg Current weight in pounds: 270.00 Current BMI: 52.7 [place] body weight (based on NIH guidelines): 45.359 kg Excess body weight loss: 0.0% The patient is a 28 year-old F who presents for Bariatric Assessment. The patient presents today for new patient sleeve gastrectomy consultation. She has had lifetime problems obesity. Her BMI is 53. She is requesting sleeve gastrectomy. Patient is attended informational seminar. She appears to be well versed in the sleeve gastrectomy. She understands the risks and complications of procedure including gastric perforation Past Medical History Past Medical History: No Reported History Additional Past Medical History / Comment(s): FREQUENT HEADACHES, LOWER BACK PAIN, STATES HAVING DIARRHEA , NAUSEA AND STOMACH PAIN., STATES CURRENT "COLD" WITH COUGH- PT TO NOTIFY DR Juan DAVILA. History of Any Multi-Drug Resistant Organisms: None Reported Past Surgical History: Section Past Anesthesia/Blood Transfusion Reactions: No Reported Reaction Past Psychological History: Anxiety, Depression Smoking Status: Never smoker Past Alcohol Use History: Occasional Past Drug Use History: None Reported - Past Family History Mother Family Medical History: No Reported History Father Family Medical History: Hypertension Surgical - Exam Vital Signs Temp Pulse BP 97.8 F 71 97/59 06/16/18 14:15 06/16/18 14:15 06/16/18 14:15 BMI 53 - General well developed - Eyes PERRL - ENT normal pinna - Neck no masses - Respiratory normal expansion - Cardiovascular Rhythm: regular - Abdomen Abdomen: soft, non tender Bariatric Assessment & Plan Plan: Morbid obesity with BMI 53. Patient be scheduled for EGD. We will perform sleeve gastrectomy once her insurance authorization is complete. Bariatric Checklist Checklist: Plan: Checklist: EGD: 1. Hiatal hernia: 2. H. Pylori: HgbA1c: Vitamin D: Smoking: Never smoker Primary care physician referral: Dr. binu Carlos ([facility]) Psychiatry clearance: Cardiology clearance: Sleep study: Diet journal: VTE risk score: VTE risk level: Rehab needs at discharge:
== END | disposition home or self-care (01) ==
LOC: BARWHC3 14:00
PROVIDERS: ATTEND Surgery
DX: E66.01 Morbid (severe) obesity due to excess calories (principal); Z68.43 Body mass index [BMI] 50.0-59.9, adult
CPT/HCPCS: 99211

== ENCOUNTER → 2018-07-07 | Outpatient (CLI) | payer BC ==
[2018-07-07 14:50] LABS: HCT 36.9 % (34.0-46.0); HGB 11.8 gm/dL (11.4-16.0); MCH 28.6 pg (25.0-35.0); MCHC 31.9 g/dL (31.0-37.0); MCV 89.5 fL (80.0-100.0); Mean Platelet Volume 7.3; Platelet Count 309 k/uL (150-450); RBC 4.12 m/uL (3.80-5.40); RDW 14.6 % (11.5-15.5); WBC 7.5 k/uL (3.8-10.6)
[2018-07-07 19:06] LABS: Albumin 4.5 g/dL (3.80-4.90); Albumin/Globulin Ratio 1.55 (1.20-2.10); Anion Gap 6.8 mmol/L (4.00-12.00); Calcium 9.3 mg/dL (8.7-10.3); Carbon Dioxide 27.2 mmol/L (21.6-31.8); Globulin 2.9 g/dL (2.1-3.7); Potassium 4.4 mmol/L (3.5-5.5); Total Bilirubin 0.3 mg/dL (0.3-1.2); Total Protein 7.4 g/dL (6.2-8.2)
[2018-07-07 22:57] LABS: Hemoglobin A1C 5.4 % (4.0-6.0)
== END ==
LOC: LABWHC1 13:49
PROVIDERS: ATTEND Surgery
DX: Z48.815 Encounter for surgical aftercare following surgery on the digestive system (principal); E66.01 Morbid (severe) obesity due to excess calories; E44.0 Moderate protein-calorie malnutrition; Z98.84 Bariatric surgery status
CPT/HCPCS: 36415; 80053; 82306; 82607; 83036; 84425; 84443; 85027; 93005

== ENCOUNTER 2018-07-11 09:40 | Day surgery (SDC) | payer BC ==
[2018-07-08 16:05] VITALS: BMI 45.2
[~2018-07-11 09:40] MED LIST: LACTATED RINGERS 1,000 ML IV SCH; LIDOCAINE 1% 20 ML VIAL (10MG/ML) FOR IV START INTRADERMA PRN
[2018-07-11 10:55] VITALS: RESP 16; TEMP 97.9
[2018-07-11] MEDS ORDERED: PROPOFOL 10 MG/ML 20 ML VIAL IV ONE (11:11)
[2018-07-11] MEDS ORDERED: LIDOCAINE 1% INJ 10MG/ML (20 ML MDV) ONE (11:11)
--- NOTE | 2018-07-11 11:12 | P.GSHP ---
History of Present Illness H&P Date: 07/11/18 Chief Complaint: GERD, obesity This a 28-year-old female undergoing workup for sleeve gastrectomy. The patient 's had some mild issues with GERD. Her BMI is 45. Past Medical History Past Medical History: No Reported History Additional Past Medical History / Comment(s): LOWER BACK PAIN, History of Any Multi-Drug Resistant Organisms: None Reported Past Surgical History: Section Past Anesthesia/Blood Transfusion Reactions: No Reported Reaction Smoking Status: Never smoker - Past Family History Mother Family Medical History: No Reported History Father Family Medical History: Hypertension Medications and Allergies Home Medications Medication Instructions Recorded Confirmed Type No Known Home Medications 07/08/18 07/11/18 History Allergies Allergy/AdvReac Type Severity Reaction Status Date / Time clarithromycin [From Biaxin] Allergy Intermediate Swelling Verified 07/11/18 10: 49 Surgical - Exam Vital Signs Temp Pulse Resp BP Pulse Ox 97.9 F 81 16 127/60 100 07/11/18 10:50 07/11/18 10:50 07/11/18 10:50 07/11/18 10:50 07/11/18 10:50 - General well developed, no distress - Eyes PERRL - ENT normal pinna - Neck no masses - Respiratory normal expansion - Cardiovascular Rhythm: regular - Abdomen Abdomen: soft, non tender Assessment and Plan Assessment: GERD, obesity. We'll perform EGD.
--- NOTE | 2018-07-11 11:19 | P.OP ---
Date of Procedure: 07/11/18 Preoperative Diagnosis: GERD Morbid obesity Postoperative Diagnosis: Mild antral gastritis Procedure(s) Performed: EGD Anesthesia: MAC Surgeon: Osmin Perez Pathology: other (Antrum) Condition: stable Disposition: PACU Description of Procedure: The patient's placed on the endoscopy table in the lateral position. She received IV sedation. The gastroscope placed oropharynx and passed in the esophagus and stomach. Scope was then placed through the pylorus. The first and second portion of the duodenum appeared normal. Scope was then brought back the antrum and this appeared mildly inflamed. A biopsies performed. The scope was then retroflexed and the remainder stomach appeared normal. There is no evidence of any significant hiatal hernia. The GE junction was at 47 is. The distal esophagus appeared mildly inflamed and a biopsies performed. The proximal esophagus appeared normal. Scope was withdrawn for patient.
[2018-07-11 12:21] VITALS: BP 111/77; PULSE 71
== END 2018-07-11 12:22 | disposition home or self-care (01) ==
LOC: ORWHC2ENDO 09:40
PROVIDERS: ATTEND Surgery
DX: K29.50 Unspecified chronic gastritis without bleeding (principal); K21.9 Gastro-esophageal reflux disease without esophagitis; E66.01 Morbid (severe) obesity due to excess calories; Z68.42 Body mass index [BMI] 45.0-49.9, adult; Z88.1 Allergy status to other antibiotic agents
CPT/HCPCS: 81025; 88305; 43239; J2001; J2704

== ENCOUNTER → 2020-01-25 | Outpatient (CLI) | payer BC ==
[2020-01-25 14:32] VITALS: BP 109/79; PULSE 89; RESP 20; TEMP 98.3; BMI 43.9
--- NOTE | 2020-01-25 14:44 | P.HPBAR ---
Bariatric H&P - History & Physicial H&P Date: 01/25/20 History & Physicial: Visit/CC: pre surg visit to see where she's at with requirements Patient initial contact: Initial weight: 122.47 kg Initial weight in pounds: 270.00 Height: 5 ft 6 in Initial BMI: 43.5 Last weight: Current weight: 123.468 kg Current weight in pounds: 272.20 Current BMI: 43.9 [place] body weight (based on NIH guidelines): 58.967 kg Excess body weight loss: The patient is a 29 year-old F who presents for Bariatric Assessment. Patient presents today for bariatric consultation. She is almost finished her 6 months of position directed weight loss visits. Patient's morbid obesity BMI 44. We'll in discussion regarding sleeve gastrectomy 1 over the risks and benefits of the procedure. Past Medical History Past Medical History: No Reported History Additional Past Medical History / Comment(s): FREQUENT HEADACHES, LOWER BACK PAIN, STATES HAVING DIARRHEA , NAUSEA AND STOMACH PAIN., STATES CURRENT "COLD" WITH COUGH- PT TO NOTIFY DR Juan DAVILA. History of Any Multi-Drug Resistant Organisms: None Reported Past Surgical History: Section Past Anesthesia/Blood Transfusion Reactions: No Reported Reaction Smoking Status: Never smoker - Past Family History Mother Family Medical History: No Reported History Father Family Medical History: Hypertension Surgical - Exam Vital Signs Temp Pulse Resp BP 98.3 F 89 20 109/79 01/25/20 14:30 01/25/20 14:30 01/25/20 14:30 01/25/20 14:30 - General well developed, well nourished, no distress - Eyes PERRL - ENT normal pinna - Neck no masses - Respiratory normal expansion - Cardiovascular Rhythm: regular - Abdomen Abdomen: soft, non tender Bariatric Assessment & Plan Plan: RBC, BMI 44. Patient will follow-up in one month. Once her insurance requirements have been met she'll be preauthorize for sleeve gastrectomy. Bariatric Checklist Checklist: Plan: Checklist: EGD: 1. Hiatal hernia: 2. H. Pylori: HgbA1c: Vitamin D: Smoking: Never smoker Primary care physician referral: Dr. binu Carlos ([facility]) Psychiatry clearance: Cardiology clearance: Sleep study: Diet journal: VTE risk score: VTE risk level: Rehab needs at discharge:
== END | disposition home or self-care (01) ==
LOC: BARWHC3 14:17
PROVIDERS: ATTEND Surgery
DX: E66.01 Morbid (severe) obesity due to excess calories (principal); Z68.41 Body mass index [BMI] 40.0-44.9, adult; R51 Headache; M54.5 Low back pain
CPT/HCPCS: 99211

== ENCOUNTER → 2020-03-07 | Outpatient (CLI) | payer BC ==
[2020-03-07 12:55] VITALS: BMI 43.0
--- NOTE | 2020-03-21 13:44 | P.HPBAR ---
Bariatric H&P - History & Physicial H&P Date: 03/07/20 History & Physicial: Visit/CC: Patient initial contact: Initial weight: 122.47 kg Initial weight in pounds: Height: 5 ft 6 in Initial BMI: Last weight: Current weight: 120.928 kg Current weight in pounds: Current BMI: 43.0 [place] body weight (based on NIH guidelines): 58.967 kg Excess body weight loss: The patient is a 29 year-old F who presents for Bariatric Assessment. Patient presents today for presurgical consultation. She has had lifetime problems obesity. Patient is morbidly obese. Her BMI is 43. Past Medical History Past Medical History: No Reported History Additional Past Medical History / Comment(s): FREQUENT HEADACHES, LOWER BACK PAIN, STATES HAVING DIARRHEA , NAUSEA AND STOMACH PAIN., STATES CURRENT "COLD" WITH COUGH- PT TO NOTIFY DR Juan DAVILA. History of Any Multi-Drug Resistant Organisms: None Reported Past Surgical History: Section Past Anesthesia/Blood Transfusion Reactions: No Reported Reaction Past Psychological History: Anxiety, Depression Past Alcohol Use History: Occasional Past Drug Use History: None Reported - Past Family History Mother Family Medical History: No Reported History Father Family Medical History: Hypertension Surgical - Exam - General well developed, well nourished, no distress - Eyes PERRL - ENT normal pinna - Neck no masses - Respiratory normal expansion - Cardiovascular Rhythm: regular - Abdomen Abdomen: soft, non tender Bariatric Assessment & Plan Plan: Morbid obesity. Patient had lifetime problems.. She is an excellent understanding sleeve history. We went over the risks and benefits of procedure including gastric staple line disruption, bleeding and scarring. Bariatric Checklist Checklist: Plan: Checklist: EGD: 1. Hiatal hernia: 2. H. Pylori: HgbA1c: Vitamin D: Smoking: Never smoker Primary care physician referral: Dr. binu Carlos ([facility]) Psychiatry clearance: Cardiology clearance: Sleep study: Diet journal: VTE risk score: VTE risk level: Rehab needs at discharge:
== END | disposition home or self-care (01) ==
LOC: BARWHC3 08:44
PROVIDERS: ATTEND Surgery
DX: E66.01 Morbid (severe) obesity due to excess calories (principal); Z71.3 Dietary counseling and surveillance
CPT/HCPCS: 97804

== ENCOUNTER → 2020-04-18 | Outpatient (CLI) | payer BC ==
[2020-04-18 14:10] VITALS: BP 140/84; PULSE 74; RESP 18; TEMP 98.8; BMI 42.4
--- NOTE | 2020-04-18 14:41 | P.HPBAR ---
Bariatric H&P - History & Physicial H&P Date: 04/18/20 History & Physicial: Visit/CC: new patient; sleeve surgery Patient initial contact: Initial weight: 122.47 kg Initial weight in pounds: 270.00 Height: 5 ft 6 in Initial BMI: 43.5 Last weight: Current weight: 119.295 kg Current weight in pounds: 263.00 Current BMI: 42.4 [place] body weight (based on NIH guidelines): 58.967 kg Excess body weight loss: 5.0% The patient is a 29 year-old F who presents for Bariatric Assessment. Patient presents today for presurgical consultation. Her BMI is 42. She's had lifetime problems obesity. She is developed comorbidities related to morbid obesity. Past Medical History Past Medical History: No Reported History Additional Past Medical History / Comment(s): FREQUENT HEADACHES, LOWER BACK PAIN, STATES HAVING DIARRHEA , NAUSEA AND STOMACH PAIN., STATES CURRENT "COLD" WITH COUGH- PT TO NOTIFY DR Juan DAVILA. History of Any Multi-Drug Resistant Organisms: None Reported Past Surgical History: Section Past Anesthesia/Blood Transfusion Reactions: No Reported Reaction Past Psychological History: Anxiety, Depression Smoking Status: Never smoker Past Alcohol Use History: Occasional Past Drug Use History: None Reported - Past Family History Mother Family Medical History: No Reported History Father Family Medical History: Hypertension Surgical - Exam Vital Signs Temp Pulse Resp BP Pulse Ox 98.8 F 74 18 140/84 97 04/18/20 14:05 04/18/20 14:05 04/18/20 14:05 04/18/20 14:05 04/18/20 14:05 - General well developed, well nourished, no distress - Eyes PERRL - ENT normal pinna - Neck no masses - Respiratory normal expansion - Cardiovascular Rhythm: regular - Abdomen Abdomen: soft, non tender Bariatric Assessment & Plan Plan: Morbid obesity. Patient has an excellent understanding of sleeve gastrectomy. We went over the risks and benefits of procedure including conversion to the open procedure and injury to the stomach liver spleen and issues gastric staple line such as bleeding scarring obstruction. The patient will follow up after EGD is performed. Bariatric Checklist Checklist: Plan: Checklist: EGD: 1. Hiatal hernia: 2. H. Pylori: HgbA1c: Vitamin D: Smoking: Never smoker Primary care physician referral: Dr. binu Carlos ([facility]) Psychiatry clearance: Cardiology clearance: Sleep study: Diet journal: VTE risk score: VTE risk level: Rehab needs at discharge:
== END | disposition home or self-care (01) ==
LOC: BARWHC3 13:50
PROVIDERS: ATTEND Surgery
DX: E66.01 Morbid (severe) obesity due to excess calories (principal); Z68.41 Body mass index [BMI] 40.0-44.9, adult
CPT/HCPCS: 99211

== ENCOUNTER → 2020-05-16 | Outpatient (CLI) | payer BC ==
[2020-05-16 16:11] LABS: Basophils % (A) 0 %; Eosinophils # (A) 0.2 k/uL (0-0.7); Eosinophils % (A) 2 %; HCT 38.4 % (34.0-46.0); HGB 12.3 gm/dL (11.4-16.0); Lymphocytes # (A) 2.3 k/uL (1.0-4.8); Lymphocytes % (A) 27 %; MCH 28.7 pg (25.0-35.0); MCV 89.8 fL (80.0-100.0); Mean Platelet Volume 7.4; Monocytes # (A) 0.4 k/uL (0-1.0); Monocytes % (A) 5 %; Neutrophils # (A) 5.5 k/uL (1.3-7.7); Neutrophils % (A) 65 %; Platelet Count 301 k/uL (150-450); RBC 4.28 m/uL (3.80-5.40); RDW 13.9 % (11.5-15.5); WBC 8.5 k/uL (3.8-10.6)
[2020-05-16 16:24] LABS: ALT 14 U/L (4-34); AST 21 U/L (14-36); African American GFR (CKD) >90 (>60 ml/min/1.73 sqM); Albumin 4.5 g/dL (3.5-5.0); Alkaline Phosphatase 59 U/L (38-126); Anion Gap 8 mmol/L; Blood Urea Nitrogen 19 mg/dL (7-17); Calcium 9.6 mg/dL (8.4-10.2); Carbon Dioxide 27 mmol/L (22-30); Chloride 102 mmol/L (98-107); Glucose 81 mg/dL (74-99); Non-African American GFR(CKD) >90 (>60 ml/min/1.73 sqM); Potassium 4.2 mmol/L (3.5-5.1); Sodium 137 mmol/L (137-145); Total Bilirubin 0.6 mg/dL (0.2-1.3); Total Protein 8.2 g/dL (6.3-8.2)
== END | disposition home or self-care (01) ==
LOC: LABPAT 15:31
PROVIDERS: ATTEND Surgery
DX: Z01.818 Encounter for other preprocedural examination (principal)
CPT/HCPCS: 36415; 80053; 85025

== ENCOUNTER 2020-05-25 09:15 | Inpatient (IN) | payer BC ==
[~2020-05-25 09:15] MED LIST changes: -LACTATED RINGERS 1,000 ML IV SCH; +LIDOCAINE 1% (10MG/ML) FOR IV START INTRADERMA PRN; -LIDOCAINE 1% 20 ML VIAL (10MG/ML) FOR IV START INTRADERMA PRN; +MIDAZOLAM 2 MG/2 ML VIAL IV PRN; +fentaNYL (PF) 50 MCG/ML 2 ML AMP IV PRN
--- NOTE | 2020-05-25 12:36 | P.GSHP ---
History of Present Illness H&P Date: 05/25/20 Chief Complaint: Morbid obesity The 30-year-old female presents today for laparoscopic sleeve gastrectomy. Patient has had complaints of obesity. She has developed severe coronary disease. Patient is well detailed on the procedure of laparoscopic sleeve gastrectomy. She was sent the risks and benefits of procedure. Past Medical History Past Medical History: No Reported History Additional Past Medical History / Comment(s): FREQUENT HEADACHES, LOWER BACK PAIN, STATES HAVING DIARRHEA , NAUSEA AND STOMACH PAIN. History of Any Multi-Drug Resistant Organisms: None Reported Past Surgical History: Section Additional Past Surgical History / Comment(s): EGD Past Anesthesia/Blood Transfusion Reactions: No Reported Reaction Additional Past Anesthesia/Blood Transfusion Reaction / Comment(s): no hx blood transfusion Past Psychological History: Anxiety, Depression Smoking Status: Never smoker Past Alcohol Use History: Occasional Past Drug Use History: None Reported - Past Family History Mother Family Medical History: No Reported History Father Family Medical History: Hypertension Medications and Allergies Home Medications Medication Instructions Recorded Confirmed Type Medroxyprogesterone Acetate 150 mg IM Q90D 01/25/20 05/25/20 History [Depo-Provera] Allergies Allergy/AdvReac Type Severity Reaction Status Date / Time clarithromycin [From Biaxin] Allergy Intermediate Swelling Verified 05/20/20 15:34 Penicillins Allergy Unknown Verified 05/20/20 15:34 Childhood Surgical - Exam BMI 40 - General well developed, well nourished, no distress - Eyes PERRL - ENT normal pinna - Neck no masses - Respiratory normal expansion - Cardiovascular Rhythm: regular - Abdomen Abdomen: soft, non tender Assessment and Plan Plan: Morbid obesity, BMI 40. We'll perform laparoscopic sleeve gastrectomy.
[2020-05-25] MEDS: LACTATED RINGERS 1,000 ML IV SCH ×2 (12:52→16:53)
[2020-05-25] MEDS: ENOXAPARIN 40 MG/0.4 ML SYRINGE SQ ONE ×2 (12:53→13:20)
[2020-05-25] MEDS: DEXAMETHASONE SOD PHOSPHATE 10 MG/ML 1 ML VIAL IV ONE ×2 (12:53→13:20)
[2020-05-25] MEDS ORDERED: ONDANSETRON 4 MG/2 ML VIAL IVP ONE ×2 (12:53→15:29)
[2020-05-25] MEDS ORDERED: SCOPOLAMINE 1.5MG/72HR PATCH TRANSDERM ONE ×2 (12:55→13:20)
[2020-05-25] MEDS ORDERED: ONDANSETRON 4 MG/2 ML VIAL ONE (12:58)
[2020-05-25] MEDS ORDERED: MIDAZOLAM 2 MG/2 ML VIAL IVP ONE ×2 (13:32→13:34)
[2020-05-25] MEDS ORDERED: SUCCINYLCHOLINE CHLORIDE 100 MG/5 ML SYR IV ONE (13:34)
[2020-05-25] MEDS ORDERED: GLYCOPYRROLATE 0.2 MG/ML 2 ML VIAL ONE (13:34)
[2020-05-25] MEDS ORDERED: KETOROLAC 15 MG/ML 1 ML VIAL ONE (13:34)
[2020-05-25] MEDS ORDERED: NEOSTIGMINE 1 MG/ML 10 ML VIAL ONE (13:34)
[2020-05-25] MEDS ORDERED: PROPOFOL 10 MG/ML 20 ML VIAL IV ONE (13:34)
[2020-05-25] MEDS ORDERED: fentaNYL (PF) 50 MCG/ML 2 ML AMP ONE (13:34)
[2020-05-25] MEDS ORDERED: ROCURONIUM 10 MG/ML (5 ML VIAL) IV ONE (13:34)
[2020-05-25] MEDS ORDERED: HYDROmorphone (PF) 1 MG/ML ONE (13:34)
[2020-05-25] MEDS ORDERED: KETAMINE 10 MG/ML 20 ML VIAL ONE (13:34)
[2020-05-25] MEDS ORDERED: LIDOCAINE 1% INJ 10MG/ML (20 ML MDV) ONE (13:34)
[2020-05-25] MEDS ORDERED: fentaNYL (PF) 50 MCG/ML 2 ML AMP IVP ONE (13:34)
[2020-05-25] MEDS ORDERED: MIDAZOLAM 2 MG/2 ML VIAL ONE (13:34)
[2020-05-25] MEDS ORDERED: BUPIVACAINE (PF) 0.25% 30 ML VIAL SQ ONE (14:15)
[2020-05-25] MEDS ORDERED: ONDANSETRON 4 MG/2 ML VIAL IVP PRN (14:51)
[2020-05-25] MEDS ORDERED: NALOXONE 0.4 MG/ML 1 ML VIAL IV PRN (14:51)
[2020-05-25] MEDS ORDERED: SIMETHICONE 40 MG/0.6 ML DROPS 2,000 MG/30 ML BOTTLE PO PRN (14:51)
[2020-05-25] MEDS ORDERED: diphenhydrAMINE 50 MG/ML 1 ML VIAL IVP PRN (14:51)
[2020-05-25] MEDS ORDERED: ACETAMINOPHEN IV (For NPO) 1,000 MG in EMPTY BAG 1 BAG IVPB ONE (14:51)
[2020-05-25] MEDS ORDERED: HYOSCYAMINE ORAL DROPS 1.875 MG/15 ML BOTTLE PO PRN (14:51)
--- NOTE | 2020-05-25 14:51 | P.OP ---
Date of Procedure: 05/25/20 Preoperative Diagnosis: Morbid obesity, BMI 40 Postoperative Diagnosis: Morbid obesity, BMI 40 Procedure(s) Performed: Laparoscopic sleeve gastrectomy Anesthesia: CATHLEEN Surgeon: Osmin Perez Estimated Blood Loss (ml): 5 Pathology: other (Stomach) Condition: stable Disposition: PACU Description of Procedure: The patient was placed on the operating room table in the supine position. She received general anesthesia and then was placed in dorsal lithotomy position. Her abdomen was prepped and draped in sterile fashion. The skin incision sites were anesthetized 1% local Xylocaine. And then the skin was incised with an 11 blade in the left lateral position. Using a blade less trocar under direct visualization the peritoneal cavity was entered. The abdomen was insufflated and then a 5 mm laparoscope was placed into the peritoneal cavity. A 5 mm trocar was placed in the right epigastric, and right lateral position. A 15 mm trocar was placed in the supra-umbilical position and another 5 mm trocar was placed in the left lateral position. The left lateral lobe of the liver was retracted. The stomach was visualized. The greater curvature of the stomach was then dissected using the Harmonic scissors. The dissection occurred approximately 5 cm from the pylorus to the level of the left rafael. There was no hiatal hernia seen. At this point a 40-[place] bougie dilator was placed the oropharynx and passed into the esophagus and into the stomach by the FIELD REVIEWER. The sleeve gastrectomy was performed by using the powered echelon stapler with a seam guard buttress material. Sequential firings of the stapler were performed. The gastric remnant was then brought out through the 15 mm trocar site. The dilator was withdrawn. And a orogastric tube was replaced into the stomach. The stomach was insufflated with 200 mL of methylene blue normal saline. There was no evidence of extravasation. The abdomen was irrigated there is no bleeding seen. The Ryan-Cristin device was used to close the 15 mm trocar with 0 Vicryl. Skin was closed with interrupted 3-0 Monocryl sutures once the trochars withdrawn. Dermabond dressing was applied. Patient was sent to recovery in stable condition.
[2020-05-25] MEDS: PROMETHAZINE INJ 25 MG/ML 1 ML VIAL IVPB ONE ×2 (15:21→15:44)
[2020-05-25] MEDS ORDERED: METOCLOPRAMIDE 5 MG/ML 2 ML VIAL IVP ONE (15:44)
--- NOTE | 2020-05-25 16:06 | XR ---
EXAMINATION TYPE: XR chest 1V portable DATE OF EXAM: 05/25/2020 COMPARISON: Prior chest x-ray 10/26/2015 HISTORY: Status post central venous catheter placement TECHNIQUE: Single frontal view of the chest is obtained. FINDINGS: There is been interval placement of a right jugular central venous catheter, distal tip is within the right atrium. There is no evident pneumothorax or pleural effusion. Lung volumes are low and the patient is rotated, there are scoliosis. Heart size may be accentuated by technique. Atelecta tic changes are suspected bilaterally. IMPRESSION: No evident comp occasions and status post central venous catheter placement. Distal tip of the catheter within the right atrium.
[2020-05-25] MEDS: diphenhydrAMINE 50 MG/ML 1 ML VIAL IVP ONE ×2 (16:07→16:18)
[2020-05-25] MEDS: ALBUTEROL NEBULIZED 2.5 MG/3 ML INHALATION SCH ×2 (16:21→19:13)
[2020-05-25] MEDS: 0.9% NACL WITH KCL 20 MEQ/L 1,000 ML IV SCH ×2 (16:54→17:11)
[2020-05-25] MEDS: KETOROLAC 15 MG/ML 1 ML VIAL IVP SCH (17:48)
[2020-05-25] MEDS: CLINDAMYCIN 900 MG in DEXTROSE 5% IN WATER 50 ML IVPB SCH ×2 (17:55)
[2020-05-25] MEDS: HYDROmorphone 1 MG/ML 1 ML SYRINGE IVP PRN (19:51)
[2020-05-26] MEDS: KETOROLAC 15 MG/ML 1 ML VIAL IVP SCH ×4 (00:50→17:59)
[2020-05-26] MEDS: CLINDAMYCIN 900 MG in DEXTROSE 5% IN WATER 50 ML IVPB SCH ×2 (00:51)
[2020-05-26] MEDS: 0.9% NACL WITH KCL 20 MEQ/L 1,000 ML IV SCH (00:51)
[2020-05-26] MEDS ORDERED: NALOXONE 0.4 MG/ML 1 ML VIAL IV PRN ×2 (01:56)
[2020-05-26 07:00] LABS: Basophils % (A) 0 %; Eosinophils # (A) 0.1 k/uL (0-0.7); Eosinophils % (A) 1 %; HCT 37.1 % (34.0-46.0); HGB 11.9 gm/dL (11.4-16.0); Lymphocytes # (A) 1.1 k/uL (1.0-4.8); Lymphocytes % (A) 15 %; MCH 28.6 pg (25.0-35.0); MCHC 31.9 g/dL (31.0-37.0); MCV 89.7 fL (80.0-100.0); Mean Platelet Volume 7.8; Monocytes # (A) 0.4 k/uL (0-1.0); Monocytes % (A) 5 %; Neutrophils # (A) 6.1 k/uL (1.3-7.7); Neutrophils % (A) 79 %; Platelet Count 242 k/uL (150-450); RBC 4.14 m/uL (3.80-5.40); WBC 7.7 k/uL (3.8-10.6)
[2020-05-26] MEDS: PANTOPRAZOLE 40 MG/10 ML VIAL IV SCH (08:01)
[2020-05-26] MEDS: HYDROmorphone 1 MG/ML 1 ML SYRINGE IVP PRN (08:01)
[2020-05-26] MEDS: ALBUTEROL NEBULIZED 2.5 MG/3 ML INHALATION SCH ×4 (08:02→19:14)
[2020-05-26] MEDS: ENOXAPARIN 40 MG/0.4 ML SYRINGE SQ SCH (08:02)
[2020-05-26] MEDS: 1: MVI, ADULT NO.4 WITH VIT K 10 ML, THIAMINE 100 MG, FOLIC ACID 1 MG, POTASSIUM CHLORID IV SCH ×12 (08:07→18:01)
[2020-05-26 10:02] LABS: African American GFR (CKD) 142.8 (60.0-200.0); Anion Gap 13.2 mmol/L (4.00-12.00); Calcium 8.7 mg/dL (8.7-10.3); Carbon Dioxide 16.8 mmol/L (21.6-31.8); Magnesium 1.8 mg/dL (1.5-2.4); Non-African American GFR(CKD) 123.2 (60.0-200.0); Phosphorus 3.1 mg/dL (2.4-5.1); Potassium 5.2 mmol/L (3.5-5.5)
--- NOTE | 2020-05-26 10:26 | P.CONS ---
History of Present Illness - Reason for Consult Consult date: 05/26/20 Anxiety, Requesting physician: Osmin Perez - Chief Complaint Morbid obesity, status post laparoscopic sleeve gastrectomy - History of Present Illness This is a 30-year-old female, morbidly obese, BMI 40.2, status post laparoscopic sleeve gastrectomy. Tolerated procedure well. Ambulating with in room, Burping, no flatus, no bowel movement. NPO,scheduled for upper GI a this AM. Denies chest pain, palpitations or shortness of breath. Pain controlled. Afebrile. Review of Systems Constitutional: Denied any fever or chills. Cardio vascular: denied any chest pain, palpitations Gastrointestinal denied any nausea vomiting Pulmonary: Denied any shortness of breath cough Neurologic denied any new focal deficits ROS Statement: Those systems with pertinent positive or pertinent negative responses have been documented in the HPI. ROS Other: All systems not noted in ROS Statement are negative. Past Medical History Past Medical History: No Reported History Additional Past Medical History / Comment(s): FREQUENT HEADACHES, LOWER BACK PAIN, STATES HAVING DIARRHEA , NAUSEA AND STOMACH PAIN. History of Any Multi-Drug Resistant Organisms: None Reported Past Surgical History: Section Additional Past Surgical History / Comment(s): EGD Past Anesthesia/Blood Transfusion Reactions: No Reported Reaction Additional Past Anesthesia/Blood Transfusion Reaction / Comm: no hx blood transfusion Smoking Status: Never smoker - Past Family History Mother Family Medical History: No Reported History Father Family Medical History: Hypertension Medications and Allergies Home Medications Medication Instructions Recorded Confirmed Type Medroxyprogesterone Acetate 150 mg IM Q90D 01/25/20 05/25/20 History [Depo-Provera] Allergies Allergy/AdvReac Type Severity Reaction Status Date / Time clarithromycin [From Biaxin] Allergy Intermediate Swelling Verified 05/20/20 15:34 Penicillins Allergy Unknown Verified 05/20/20 15:34 Childhood Physical Exam Vitals: Vital Signs Temp Pulse Pulse Resp BP Pulse Ox 05/26/20 08:15 72 05/26/20 08:05 99 05/26/20 08:02 70 05/26/20 07:00 98.8 F 63 114/72 100 05/26/20 01:30 97.7 F 84 129/84 98 05/25/20 23:48 100 05/25/20 19:07 98.2 F 76 133/83 100 05/25/20 18:52 83 130/83 99 05/25/20 18:37 74 136/81 05/25/20 18:22 73 134/83 05/25/20 18:19 72 138/83 05/25/20 17:52 73 134/85 05/25/20 17:37 71 137/84 05/25/20 17:22 63 135/83 05/25/20 17:19 99 05/25/20 17:07 98.1 F 67 130/81 05/25/20 16:46 69 16 144/81 05/25/20 16:30 71 16 140/75 05/25/20 16:15 65 16 141/75 05/25/20 16:00 67 16 140/76 05/25/20 15:45 70 16 141/79 05/25/20 15:30 69 16 139/71 05/25/20 15:15 70 16 129/73 05/25/20 15:06 96.8 F L 75 14 132/73 05/25/20 12:20 97.9 F 89 20 118/79 97 Intake and Output 05/25/20 05/26/20 05/26/20 22:59 06:59 14:59 Intake Total 700 Balance 700 Intake: IV 700 Other: # Voids 2 Weight 112.9 kg PHYSICAL EXAM: VITAL SIGNS: As above GENERAL: Sitting up in bed, no acute distress HEENT: Conjunctivae normal. eyes normal. NECK: No JVD. No thyroid enlargement. No LNs CARDIOVASCULAR: S1, S2 regular.. No murmur RESPIRATION: Breath sounds diminished in the bases. No rhonchi or crackles. No bronchial breathing. ABDOMEN: Soft, status post surgery. Laparoscopic sites clean and dry. No guarding.Bowel sounds heard. LEGS: No edema. no swelling. No calf tenderness PSYCHIATRY: Alert and oriented X3, mood and affect normal. NERVOUS SYSTEM: Cranial N 2-12 grossly normal. Moves all 4 limbs. No focal deficits. Strength and sensation grossly intact.. Skin: Warm and dry, no rash Lymphatic system. No LN neck axilla. Results CBC & Chem 7: 05/26/20 06:23 05/26/20 06:23 Labs: Abnormal Lab Results - Last 24 Hours (Table) 05/26/20 Range/Units 06:23 Carbon Dioxide 16.8 L (21.6-31.8) mmol/L Anion Gap 13.20 H (4.00-12.00) mmol/L Assessment and Plan Assessment: Morbid obesity, BMI 40.2, status post laparoscopic sleeve gastrectomy History of anxiety History of depression Plan: Continue on current medication regime ,monitoring and symptomatic tr eatment. Increase ambulation as tolerated. Aggressive pulmonary toileting with incentive spirometer reinforced. Upper GI pending. Thank you Dr. Perez for the consult. The impression and plan of care has been dictated as directed. : I performed a history and examination of this patient, discussed the same with the dictator. I agree with the dictator's note ,documented as a scribe. Any additional findings or plans will be noted.
--- NOTE | 2020-05-26 10:57 | FL ---
EXAMINATION TYPE: FL UGI DATE OF EXAM: 05/26/2020 CLINICAL HISTORY: Status post gastric sleeve Contrast: Omnipaque 350 50 mL The patient ingested contrast without difficulty or delay. Noted are postsurgical changes of gastric sleeve . There is edema at the proximal gastric sleeve with the mild delay in contrast transit. Cont rast does extend beyond the area of edema and into the proximal duodenum. No evidence for leak. IMPRESSION: Post-surgical change of gastric sleeve with edema noted at the proximal LAD gastric slee ve component and mild obstruction.
[2020-05-26] MEDS ORDERED: MAGNESIUM SULFATE-D5W PMX 1 GM in DEXTROSE/WATER 1 100ML.BAG IVPB ONE (12:42)
--- NOTE | 2020-05-26 12:46 | P.PN ---
Subjective Progress Note Date: 05/26/20 CHIEF COMPLAINT: Morbid obesity HISTORY OF PRESENT ILLNESS: Patient seen and examined with Dr. Perez. Patient is status post laparoscopic sleeve gastrectomy. Patient reports abdominal pain. Denies any nausea or vomiting. Denies any flatus or bowel movement. She is burping. She's afebrile. WBC 7.7 hemoglobin 11.9 magnesium 1.8 Upper GI shows postsurgical change of gastric sleeve with edema noted at the proximal LAD gastric sleep component and mild obstruction. No evidence of leak. PHYSICAL EXAM: VITAL SIGNS: Reviewed. GENERAL: Well-developed in no acute distress. HEENT: No sclera icterus. Extraocular movements grossly intact. Moist buccal mucosa. Head is atraumatic, normocephalic. ABDOMEN: Soft. Nondistended. NEUROLOGIC: Alert and oriented. Cranial nerves II through XII grossly intact. ASSESSMENT: 1. Morbid obesity status post laparoscopic sleeve gastrectomy postop day #1 2. Hypomagnesemia PLAN: -Start patient on a bariatric clear diet -Continue IV fluids -Replace magnesium -Continue pain control -Continue antiemetics -Continue pulmonary toileting with incentive spirometer -Encourage patient to ambulate -GI prophylaxis Protonix and DVT prophylaxis Lovenox Physician Cover Marker note has been reviewed by physician. Signing provider agrees with the documented findings, assessment, and plan of care. Objective - Vital Signs Vital signs: Vital Signs Temp 98.8 F 05/26/20 07:00 Pulse 68 05/26/20 12:17 Resp 16 05/25/20 16:46 BP 114/72 05/26/20 07:00 Pulse Ox 99 05/26/20 08:05 Intake & Output 05/25/20 05/26/20 05/26/20 18:59 06:59 18:59 Intake Total 1500 Output Total 15 Balance 1485 Weight 112.9 kg Intake: IV 1500 Output: Estimated Blood Loss 15 Other: # Voids 2 - Labs CBC & Chem 7: 05/26/20 06:23 05/26/20 06:23 Labs: Abnormal Lab Results - Last 24 Hours (Table) 05/26/20 Range/Units 06:23 Carbon Dioxide 16.8 L (21.6-31.8) mmol/L Anion Gap 13.20 H (4.00-12.00) mmol/L
[2020-05-26 16:14] VITALS: BMI 40.1
[2020-05-26] MEDS ORDERED: diphenhydrAMINE 50 MG/ML 1 ML VIAL IVP PRN (16:27)
[2020-05-26] MEDS: LACTATED RINGERS 1,000 ML IV SCH (16:59)
[2020-05-26] MEDS: SODIUM CHLORIDE 0.9% 1,000 ML IV SCH (23:04)
[2020-05-27] MEDS: KETOROLAC 15 MG/ML 1 ML VIAL IVP SCH ×3 (00:22→13:31)
[2020-05-27] MEDS: SODIUM CHLORIDE 0.9% 1,000 ML IV SCH ×3 (00:24→16:41)
[2020-05-27 01:53] VITALS: RESP 16
[2020-05-27] MEDS: 1: MVI, ADULT NO.4 WITH VIT K 10 ML, THIAMINE 100 MG, FOLIC ACID 1 MG, POTASSIUM CHLORID IV SCH ×12 (05:37→16:42)
[2020-05-27 06:50] LABS: Basophils % (A) 0 %; Eosinophils # (A) 0.1 k/uL (0-0.7); Eosinophils % (A) 1 %; HGB 11.1 gm/dL (11.4-16.0); Lymphocytes # (A) 1.3 k/uL (1.0-4.8); Lymphocytes % (A) 23 %; MCH 28.7 pg (25.0-35.0); MCHC 31.7 g/dL (31.0-37.0); MCV 90.6 fL (80.0-100.0); Mean Platelet Volume 7.8; Monocytes # (A) 0.3 k/uL (0-1.0); Monocytes % (A) 6 %; Neutrophils % (A) 69 %; Platelet Count 209 k/uL (150-450); RBC 3.86 m/uL (3.80-5.40); RDW 14.1 % (11.5-15.5); WBC 5.8 k/uL (3.8-10.6)
[2020-05-27] MEDS ORDERED: bisacodyL 5 MG TABLET.DR PO PRN (08:00)
[2020-05-27] MEDS: ALBUTEROL NEBULIZED 2.5 MG/3 ML INHALATION SCH ×2 (08:09→11:38)
[2020-05-27 08:36] VITALS: PULSE 71
[2020-05-27] MEDS: ENOXAPARIN 40 MG/0.4 ML SYRINGE SQ SCH (08:42)
[2020-05-27] MEDS: PANTOPRAZOLE 40 MG/10 ML VIAL IV SCH (08:42)
[2020-05-27 09:37] LABS: African American GFR (CKD) 142.8 (60.0-200.0); Anion Gap 8.9 mmol/L (4.00-12.00); BUN/Creat Ratio 16.67 Ratio (12.00-20.00); Calcium 8.6 mg/dL (8.7-10.3); Carbon Dioxide 21.1 mmol/L (21.6-31.8); Non-African American GFR(CKD) 123.2 (60.0-200.0); Potassium 4.3 mmol/L (3.5-5.5)
[2020-05-27 09:38] LABS: Magnesium 1.9 mg/dL (1.5-2.4)
--- NOTE | 2020-05-27 09:41 | P.PN ---
Subjective Progress Note Date: 05/27/20 This is a 30-year-old female, morbidly obese, BMI 40.2, status post laparoscopic sleeve gastrectomy. Tolerated procedure well. Ambulating with in room, Burping, no flatus, no bowel movement. NPO,scheduled for upper GI a this AM. Denies chest pain, palpitations or shortness of breath. Pain controlled. Afebrile. 05/27/20 tolerating bariatric clear liquid diet with no nausea or vomiting or diarrhea. Passing flatus. Ambulating, tolerating exertion well. Afebrile, normal WBC. Denies chest pain, palpitations or shortness of breath. Objective - Vital Signs Vital signs: Vital Signs Temp 97.8 F 05/27/20 07:00 Pulse 76 05/27/20 08:18 Resp 16 05/27/20 00:36 BP 119/77 05/27/20 07:00 Pulse Ox 100 05/27/20 07:00 Intake & Output 05/26/20 05/27/20 05/27/20 18:59 06:59 18:59 Intake Total 400 50 Balance 400 50 Weight 112.9 kg Intake: Oral 400 50 - Exam VITAL SIGNS: As above GENERAL: Alert and oriented 3, Sitting up in bed, NAD. HEENT: Conjunctivae normal. eyes normal. Oral mucosa moist. NECK: No JVD. No thyroid enlargement. CARDIOVASCULAR: S1, S2 regular. No murmur RESPIRATION: Bilateral bases diminished . ABDOMEN: Soft, status post surgery. No guarding.Bowel sounds heard. LEGS: No edema. no swelling. No calf tenderness NERVOUS SYSTEM: Cranial N 2-12 grossly normal. No focal deficits. Strength and sensation grossly intact. Skin: Warm and dry, no rash - Labs CBC & Chem 7: 05/27/20 06:11 05/26/20 06:23 Labs: Abnormal Lab Results - Last 24 Hours (Table) 05/26/20 05/27/20 Range/Units 06:23 06:11 Hgb 11.1 L (11.4-16.0) gm/dL Carbon Dioxide 16.8 L (21.6-31.8) mmol/L Anion Gap 13.20 H (4.00-12.00) mmol/L Assessment and Plan Assessment: Morbid obesity, BMI 40.2, status post laparoscopic sleeve gastrectomy History of anxiety History of depression Plan: Continue on current medication regime ,monitoring and symptomatic treatment. Maintain aggressive pulmonary toileting with incentive spirometer reinforced. Follow-up magnesium level pending. Medically cleared for discharge. Follow-up with PCP, Dr. Carlos in 1 week. The impression and plan of care has been dictated as directed. : I performed a history and examination of this patient, discussed the same with the dictator. I agree with the dictator's note ,documented as a scribe. Any additional findings or plans will be noted.
--- NOTE | 2020-05-27 13:05 | P.DS ---
Providers Date of admission: 05/25/20 12:01 Expected date of discharge: 05/27/20 Attending physician: Osmin Perez Consults: 05/25/20 14:51 Consult Physician Routine Consulting Provider: Omero Carlos Consult Reason/Comments: Medical management Do you want consulting provider notified?: Yes Primary care physician: Omero Carlos Hospital Course: Discharge diagnosis 1. Morbid obesity status post laparoscopic sleeve gastrectomy Hospital course This is a 30-year-old female with known history of morbid obesity she is now status post laparoscopic sleeve gastrectomy. She tolerated surgery well. She is tolerating diet. Upper GI notes postsurgical change of gastric sleeve with edema noted at the proximal LAD gastric sleeve component and mild obstruction. She is passing gas. She's afebrile. She's been up and ambulating. Patient is stable for discharge. Physician Administrative Dietitian note has been reviewed by physician. Signing provider agrees with the documented findings, assessment, and plan of care. Patient Condition at Discharge: Stable Plan - Discharge Summary Discharge Rx Participant: No New Discharge Prescriptions: New bisacodyL [Dulcolax] 5 mg PO DAILY PRN #10 tablet. PRN Reason: Constipation Simethicone 40 mg/0.6 ml Drops [Mylicon Drops] 40 mg PO PCHS PRN #30 ml PRN Reason: Gas Hydrocodone/Acetaminophen [[place] 5-325] 1 tab PO Q6HR PRN 3 Days #12 tab PRN Reason: Pain Omeprazole [PriLOSEC] 40 mg PO DAILY #30 capsule. Ondansetron Odt [Zofran Odt] 4 mg PO Q8HR PRN #9 tab PRN Reason: Nausea Continue Medroxyprogesterone Acetate [Depo-Provera] 150 mg IM Q90D Discharge Medication List Medroxyprogesterone Acetate [Depo-Provera] 150 mg IM Q90D 01/25/20 [History] Hydrocodone/Acetaminophen [[place] 5-325] 1 tab PO Q6HR PRN 3 Days #12 tab 05/27/20 [Rx] Omeprazole [PriLOSEC] 40 mg PO DAILY #30 capsule. 05/27/20 [Rx] Ondansetron Odt [Zofran Odt] 4 mg PO Q8HR PRN #9 tab 05/27/20 [Rx] Simethicone 40 mg/0.6 ml Drops [Mylicon Drops] 40 mg PO PCHS PRN #30 ml 05/27/20 [Rx] bisacodyL [Dulcolax] 5 mg PO DAILY PRN #10 tablet. 05/27/20 [Rx] Follow up Appointment(s)/Referral(s): Omero Carlos DO [Primary Care Provider] - 1 Week Osmin Perez MD [STAFF PHYSICIAN] - 1 Week Activity/Diet/Wound Care/Special Instructions: No driving while taking [place] No lifting over 10 pounds You may shower. No soaking or tub baths for 2 weeks Very light activity until you are reevaluated at your follow up appointment with your surgeon You must open, crush or break all pills that are larger than the size of the tic tac No straws or carbonated beverages Discharge Disposition: HOME SELF-CARE
[2020-05-27 15:45] VITALS: BP 116/77; TEMP 98.2
[2020-05-27] MEDS: LACTATED RINGERS 1,000 ML IV SCH (16:43)
== END 2020-05-27 17:42 | disposition home or self-care (01) | DRG 621 ==
LOC: 2ORMAIN 12:01 → 4SSUR 15:55
PROVIDERS: ADMIT Surgery; ATTEND Surgery
PROC: 0DB64Z3 Excision of Stomach, Percutaneous Endoscopic Approach, Vertical (ICD-10-PCS; principal; 2020-05-25 15:05)
DX: E66.01 Morbid (severe) obesity due to excess calories (principal); Z68.41 Body mass index [BMI] 40.0-44.9, adult; E83.42 Hypomagnesemia; K59.89 Other specified functional intestinal disorders; M54.5 Low back pain; R51.9 Headache, unspecified; Z79.3 Long term (current) use of hormonal contraceptives; Z86.59 Personal history of other mental and behavioral disorders; Z98.891 History of uterine scar from previous surgery; Z87.19 Personal history of other diseases of the digestive system; Z88.1 Allergy status to other antibiotic agents; Z88.0 Allergy status to penicillin; Z82.49 Family history of ischemic heart disease and other diseases of the circulatory system
CPT/HCPCS: 71045; 74240; 80048; 80051; 82310; 82565; 83735; 84100; 84520; 85025; 88307; 94640

== ENCOUNTER → 2020-06-06 | Outpatient (CLI) | payer BC ==
[2020-06-06 14:57] VITALS: BP 122/88; PULSE 82; RESP 16; TEMP 98.2; BMI 38.5
--- NOTE | 2020-06-06 15:42 | P.HPBAR ---
Bariatric H&P - History & Physicial H&P Date: 06/06/20 History & Physicial: Visit/CC: surg f/u 05/25 Patient initial contact: Initial weight: 122.47 kg Initial weight in pounds: 270.00 Height: 5 ft 6 in Initial BMI: 43.5 Last weight: Current weight: 108.409 kg Current weight in pounds: 239.00 Current BMI: 38.5 [place] body weight (based on NIH guidelines): 58.967 kg Excess body weight loss: 22.1% The patient is a 30 year-old F who presents for Bariatric Assessment. Patient presents today for gastric sleeve follow-up. She is doing quite well. She's had some minimal GERD. Past Medical History Past Medical History: No Reported History Additional Past Medical History / Comment(s): FREQUENT HEADACHES, LOWER BACK PAIN, STATES HAVING DIARRHEA , NAUSEA AND STOMACH PAIN., STATES CURRENT "COLD" WITH COUGH- PT TO NOTIFY DR Juan DAVILA. History of Any Multi-Drug Resistant Organisms: None Reported Past Surgical History: Section Additional Past Surgical History / Comment(s): EGD Past Anesthesia/Blood Transfusion Reactions: No Reported Reaction Additional Past Anesthesia/Blood Transfusion Reaction / Comm: no hx blood transfusion Past Psychological History: Anxiety, Depression Smoking Status: Never smoker Past Alcohol Use History: Occasional Past Drug Use History: None Reported - Past Family History Mother Family Medical History: No Reported History Father Family Medical History: Hypertension Surgical - Exam Vital Signs Temp Pulse Resp BP 98.2 F 82 16 122/88 06/06/20 14:48 06/06/20 14:48 06/06/20 14:48 06/06/20 14:48 - General well developed, well nourished, no distress - Eyes PERRL - ENT normal pinna - Neck no masses - Respiratory normal expansion - Cardiovascular Rhythm: regular - Abdomen Abdomen: soft, non tender Bariatric Assessment & Plan Plan: Status post sleeve gastrectomy. Patient is doing well. She'll follow-up in 4 weeks. Bariatric Checklist Checklist: Plan: Checklist: EGD: 1. Hiatal hernia: 2. H. Pylori: HgbA1c: Vitamin D: Smoking: Never smoker Primary care physician referral: Dr. binu Carlos ([facility]) Psychiatry clearance: Cardiology clearance: Sleep study: Diet journal: VTE risk score: VTE risk level: Rehab needs at discharge:
== END | disposition home or self-care (01) ==
LOC: BARWHC3 14:18
PROVIDERS: ATTEND Surgery
DX: Z48.815 Encounter for surgical aftercare following surgery on the digestive system (principal); Z98.84 Bariatric surgery status
CPT/HCPCS: 97803; 99211

== ENCOUNTER → 2020-06-20 | Outpatient (CLI) | payer BC ==
[2020-06-20 14:47] VITALS: BP 111/85; PULSE 85; TEMP 98.1
--- NOTE | 2020-06-20 14:57 | P.HPBAR ---
Bariatric H&P - History & Physicial H&P Date: 06/20/20 History & Physicial: Visit/CC: follow up post surgery Patient initial contact: Initial weight: 122.47 kg Initial weight in pounds: 270.00 Height: Initial BMI: Last weight: Current weight: Current weight in pounds: Current BMI: [place] body weight (based on NIH guidelines): Excess body weight loss: The patient is a 30 year-old F who presents for Bariatric Assessment. Patient presents today for sleeve gastrectomy follow-up. She's had some minimal GERD. She's had excellent weight loss. Past Medical History Past Medical History: No Reported History Additional Past Medical History / Comment(s): FREQUENT HEADACHES, LOWER BACK PAIN, STATES HAVING DIARRHEA , NAUSEA AND STOMACH PAIN., STATES CURRENT "COLD" WITH COUGH- PT TO NOTIFY DR Juan DAVILA. History of Any Multi-Drug Resistant Organisms: None Reported Past Surgical History: Bariatric Surgery, Section Additional Past Surgical History / Comment(s): EGD; sleeve 05/25/2020 Past Anesthesia/Blood Transfusion Reactions: No Reported Reaction Additional Past Anesthesia/Blood Transfusion Reaction / Comm: no hx blood transfusion Past Psychological History: Anxiety, Depression Smoking Status: Never smoker Past Alcohol Use History: Occasional Past Drug Use History: None Reported - Past Family History Mother Family Medical History: No Reported History Father Family Medical History: Hypertension Surgical - Exam Vital Signs Temp Pulse BP 98.1 F 85 111/85 06/20/20 14:41 06/20/20 14:41 06/20/20 14:41 - General well developed, well nourished, no distress - Eyes PERRL - ENT normal pinna - Neck no masses - Respiratory normal expansion - Cardiovascular Rhythm: regular - Abdomen Abdomen: soft, non tender Bariatric Assessment & Plan Plan: Morbid obesity. Patient is minimal will be observed. She'll follow-up in 4 weeks. Bariatric Checklist Checklist: Plan: Checklist: EGD: 1. Hiatal hernia: 2. H. Pylori: HgbA1c: Vitamin D: Smoking: Never smoker Primary care physician referral: Dr. binu Carlos ([facility]) Psychiatry clearance: Cardiology clearance: Sleep study: Diet journal: VTE risk score: VTE risk level: Rehab needs at discharge:
[2020-06-20 15:51] VITALS: BMI 37.4
== END | disposition home or self-care (01) ==
LOC: BARWHC3 14:26
PROVIDERS: ATTEND Surgery
DX: E66.01 Morbid (severe) obesity due to excess calories (principal); Z71.3 Dietary counseling and surveillance
CPT/HCPCS: 97803; 99211

== ENCOUNTER → 2020-07-18 | Outpatient (CLI) | payer BC ==
[2020-07-18 14:24] VITALS: BP 115/80; PULSE 96; RESP 18; TEMP 98.3; BMI 35.5
--- NOTE | 2020-07-28 11:46 | P.HPBAR ---
Bariatric H&P - History & Physicial H&P Date: 07/18/20 History & Physicial: Visit/CC: follow up 2 months Patient initial contact: Initial weight: 122.47 kg Initial weight in pounds: 270.00 Height: 5 ft 6 in Initial BMI: 43.5 Last weight: Current weight: 99.79 kg Current weight in pounds: 220.00 Current BMI: 35.5 [place] body weight (based on NIH guidelines): 58.967 kg Excess body weight loss: 35.7% The patient is a 30 year-old F who presents for Bariatric Assessment. Patient presents today for sleeve gastrectomy follow-up. She is doing well. She has some minimal GERD. Past Medical History Past Medical History: No Reported History Additional Past Medical History / Comment(s): FREQUENT HEADACHES, LOWER BACK PAIN, STATES HAVING DIARRHEA , NAUSEA AND STOMACH PAIN., STATES CURRENT "COLD" WITH COUGH- PT TO NOTIFY DR Juan DAVILA. History of Any Multi-Drug Resistant Organisms: None Reported Past Surgical History: Bariatric Surgery, Section Additional Past Surgical History / Comment(s): EGD; sleeve 05/25/2020 Past Anesthesia/Blood Transfusion Reactions: No Reported Reaction Additional Past Anesthesia/Blood Transfusion Reaction / Comm: no hx blood transfusion Past Psychological History: Anxiety, Depression Smoking Status: Never smoker Past Alcohol Use History: Occasional Past Drug Use History: None Reported - Past Family History Mother Family Medical History: No Reported History Father Family Medical History: Hypertension Surgical - Exam Vital Signs Temp Pulse Resp BP 98.3 F 96 18 115/80 07/18/20 14:20 07/18/20 14:20 07/18/20 14:20 07/18/20 14:20 - General well developed, well nourished, no distress - Eyes PERRL - ENT normal pinna - Neck no masses - Respiratory normal expansion - Cardiovascular Rhythm: regular - Abdomen Abdomen: soft, non tender Bariatric Assessment & Plan Plan: Morbid obesity. Patient did quite well from her gastric sleeve. Her GERD is minimal will be observed. Bariatric Checklist Checklist: Plan: Checklist: EGD: 1. Hiatal hernia: 2. H. Pylori: HgbA1c: Vitamin D: Smoking: Never smoker Primary care physician referral: Dr. binu Carlos ([facility]) Psychiatry clearance: Cardiology clearance: Sleep study: Diet journal: VTE risk score: VTE risk level: Rehab needs at discharge:
== END | disposition home or self-care (01) ==
LOC: BARWHC3 14:02
PROVIDERS: ATTEND Surgery
DX: Z48.815 Encounter for surgical aftercare following surgery on the digestive system (principal); K21.9 Gastro-esophageal reflux disease without esophagitis; E66.01 Morbid (severe) obesity due to excess calories; Z68.35 Body mass index [BMI] 35.0-35.9, adult; Z98.84 Bariatric surgery status
CPT/HCPCS: 99211

== ENCOUNTER → 2020-08-15 | Outpatient (CLI) | payer BC ==
[2020-08-15 13:13] VITALS: BP 115/78; PULSE 73; RESP 18; TEMP 98.4; BMI 33.5
--- NOTE | 2020-08-15 14:34 | P.HPBAR ---
Bariatric H&P - History & Physicial H&P Date: 08/15/20 History & Physicial: Visit/CC: follow up 3 months Patient initial contact: Initial weight: 122.47 kg Initial weight in pounds: 270.00 Height: 5 ft 6 in Initial BMI: 43.5 Last weight: Current weight: 94.347 kg Current weight in pounds: 208.00 Current BMI: 33.5 [place] body weight (based on NIH guidelines): 58.967 kg Excess body weight loss: 44.2% The patient is a 30 year-old F who presents for Bariatric Assessment. Patient presents today for sleeve gastrectomy follow-up. She feels quite well. She's had some minimal GERD. Past Medical History Past Medical History: No Reported History Additional Past Medical History / Comment(s): FREQUENT HEADACHES, LOWER BACK PAIN, STATES HAVING DIARRHEA , NAUSEA AND STOMACH PAIN., STATES CURRENT "COLD" WITH COUGH- PT TO NOTIFY DR Juan DAVILA. History of Any Multi-Drug Resistant Organisms: None Reported Past Surgical History: Bariatric Surgery, Section Additional Past Surgical History / Comment(s): EGD; sleeve 05/25/2020 Past Anesthesia/Blood Transfusion Reactions: No Reported Reaction Additional Past Anesthesia/Blood Transfusion Reaction / Comm: no hx blood transfusion Past Psychological History: Anxiety, Depression Smoking Status: Never smoker Past Alcohol Use History: Occasional Past Drug Use History: None Reported - Past Family History Mother Family Medical History: No Reported History Father Family Medical History: Hypertension Surgical - Exam Vital Signs Temp Pulse Resp BP 98.4 F 73 18 115/78 08/15/20 13:10 08/15/20 13:10 08/15/20 13:10 08/15/20 13:10 - General well developed, well nourished, no distress - Eyes PERRL - ENT normal pinna - Neck no masses - Respiratory normal expansion - Cardiovascular Rhythm: regular - Abdomen Abdomen: soft, non tender Bariatric Assessment & Plan Plan: Status post sleeve inserted. Patient is minimal was observed. She'll follow-up in 4 weeks. Bariatric Checklist Checklist: Plan: Checklist: EGD: 1. Hiatal hernia: 2. H. Pylori: HgbA1c: Vitamin D: Smoking: Never smoker Primary care physician referral: Dr. binu Carlos ([facility]) Psychiatry clearance: Cardiology clearance: Sleep study: Diet journal: VTE risk score: VTE risk level: Rehab needs at discharge:
== END | disposition home or self-care (01) ==
LOC: BARWHC3 12:41
PROVIDERS: ATTEND Surgery
DX: Z48.815 Encounter for surgical aftercare following surgery on the digestive system (principal); E66.01 Morbid (severe) obesity due to excess calories; Z71.3 Dietary counseling and surveillance; Z98.84 Bariatric surgery status; Z68.33 Body mass index [BMI] 33.0-33.9, adult
CPT/HCPCS: 97803; 99211

== ENCOUNTER → 2020-09-07 | Outpatient (CLI) | payer BC ==
[2020-09-07 13:15] LABS: HCT 36.7 % (34.0-46.0); HGB 12.4 gm/dL (11.4-16.0); MCH 30.9 pg (25.0-35.0); MCHC 33.7 g/dL (31.0-37.0); MCV 91.9 fL (80.0-100.0); Mean Platelet Volume 7.7; Platelet Count 248 k/uL (150-450); RBC 3.99 m/uL (3.80-5.40); RDW 14.2 % (11.5-15.5)
[2020-09-07 21:00] LABS: African American GFR (CKD) 135.7 (60.0-200.0); Albumin 4.5 g/dL (3.80-4.90); Albumin/Globulin Ratio 1.67 (1.60-3.17); Anion Gap 6.6 mmol/L (4.00-12.00); BUN/Creat Ratio 32.86 Ratio (12.00-20.00); Calcium 9.7 mg/dL (8.7-10.3); Carbon Dioxide 27.4 mmol/L (21.6-31.8); Globulin 2.7 g/dL (1.6-3.3); Non-African American GFR(CKD) 117.1 (60.0-200.0); Potassium 4.2 mmol/L (3.5-5.5); Total Bilirubin 0.4 mg/dL (0.2-1.2); Total Protein 7.2 g/dL (6.2-8.2)
[2020-09-07 21:20] LABS: Folate, Serum 10.5 ng/mL
== END | disposition home or self-care (01) ==
LOC: LABWHC1 12:33
PROVIDERS: ATTEND Surgery
DX: E55.9 Vitamin D deficiency, unspecified (principal); E44.0 Moderate protein-calorie malnutrition; E66.01 Morbid (severe) obesity due to excess calories
CPT/HCPCS: 36415; 80053; 82306; 82607; 82746; 84425; 84443; 85027

== ENCOUNTER → 2020-09-12 | Outpatient (CLI) | payer BC ==
[2020-09-12 13:14] VITALS: BP 183/81; PULSE 89; RESP 18; TEMP 98.1
--- NOTE | 2020-09-12 15:06 | P.HPBAR ---
Bariatric H&P - History & Physicial H&P Date: 09/12/20 History & Physicial: Visit/CC: follow up / 4 months Patient initial contact: Initial weight: 122.47 kg Initial weight in pounds: 270.00 Height: 5 ft 6 in Initial BMI: Last weight: Current weight: 92.079 kg Current weight in pounds: Current BMI: [place] body weight (based on NIH guidelines): Excess body weight loss: The patient is a 30 year-old F who presents for Bariatric Assessment. Patient presents today for sleeve gastrectomy follow-up. She's had some mild GERD. Past Medical History Past Medical History: No Reported History Additional Past Medical History / Comment(s): FREQUENT HEADACHES, LOWER BACK PAIN, STATES HAVING DIARRHEA , NAUSEA AND STOMACH PAIN., STATES CURRENT "COLD" WITH COUGH- PT TO NOTIFY DR Juan DAVILA. History of Any Multi-Drug Resistant Organisms: None Reported Past Surgical History: Bariatric Surgery, Section Additional Past Surgical History / Comment(s): EGD; sleeve 05/25/2020 Past Anesthesia/Blood Transfusion Reactions: No Reported Reaction Additional Past Anesthesia/Blood Transfusion Reaction / Comm: no hx blood transfusion Past Psychological History: Anxiety, Depression Smoking Status: Never smoker Past Alcohol Use History: Occasional Past Drug Use History: None Reported - Past Family History Mother Family Medical History: No Reported History Father Family Medical History: Hypertension Surgical - Exam Vital Signs Temp Pulse Resp BP 98.1 F 89 18 183/81 09/12/20 13:11 09/12/20 13:11 09/12/20 13:11 09/12/20 13:11 - General well developed, well nourished, no distress - Eyes PERRL - ENT normal pinna - Neck no masses - Respiratory normal expansion - Cardiovascular Rhythm: regular - Abdomen Abdomen: soft, non tender Bariatric Assessment & Plan Plan: Status post sleeve gastric. Patient's GERD is minimal be observed. She'll follow-up in 4 weeks. Bariatric Checklist Checklist: Plan: Checklist: EGD: 1. Hiatal hernia: 2. H. Pylori: HgbA1c: Vitamin D: Smoking: Never smoker Primary care physician referral: Dr. binu Carlos ([facility]) Psychiatry clearance: Cardiology clearance: Sleep study: Diet journal: VTE risk score: VTE risk level: Rehab needs at discharge:
== END | disposition home or self-care (01) ==
LOC: BARWHC3 13:00
PROVIDERS: ATTEND Surgery
DX: Z48.815 Encounter for surgical aftercare following surgery on the digestive system (principal); Z98.84 Bariatric surgery status; Z98.890 Other specified postprocedural states
CPT/HCPCS: 99211

== ENCOUNTER → 2020-10-17 | Outpatient (CLI) | payer BC | END | disposition home or self-care (01) | LOC: BARWHC3 12:51 | PROVIDERS: ATTEND Surgery | DX: Z53.9 Procedure and treatment not carried out, unspecified reason (principal) ==

== ENCOUNTER → 2020-11-14 | Outpatient (CLI) | payer BC ==
[2020-11-14 14:33] VITALS: BP 118/83; PULSE 74; RESP 16; TEMP 98.9; BMI 31.1
--- NOTE | 2020-11-14 16:19 | P.HPBAR ---
Bariatric H&P - History & Physicial H&P Date: 11/14/20 History & Physicial: Visit/CC: F/U Patient initial contact: Initial weight: 122.47 kg Initial weight in pounds: 270.00 Height: 5 ft 6 in Initial BMI: 43.5 Last weight: Current weight: 87.543 kg Current weight in pounds: 193.00 Current BMI: 31.1 [place] body weight (based on NIH guidelines): 58.967 kg Excess body weight loss: 55.0% The patient is a 30 year-old F who presents for Bariatric Assessment. She presents today for sleeve gastrectomy fall. She's had some mild GERD. She is an excellent weight loss. Past Medical History Past Medical History: No Reported History Additional Past Medical History / Comment(s): FREQUENT HEADACHES, LOWER BACK PAIN, STATES HAVING DIARRHEA , NAUSEA AND STOMACH PAIN., STATES CURRENT "COLD" WITH COUGH- PT TO NOTIFY DR Juan DAVILA. History of Any Multi-Drug Resistant Organisms: None Reported Past Surgical History: Bariatric Surgery, Section Additional Past Surgical History / Comment(s): EGD; sleeve 05/25/2020 Past Anesthesia/Blood Transfusion Reactions: No Reported Reaction Additional Past Anesthesia/Blood Transfusion Reaction / Comm: no hx blood transfusion Past Psychological History: Anxiety, Depression Smoking Status: Never smoker Past Alcohol Use History: Occasional Past Drug Use History: None Reported - Past Family History Mother Family Medical History: No Reported History Father Family Medical History: Hypertension Surgical - Exam Vital Signs Temp Pulse Resp BP 98.9 F 74 16 118/83 11/14/20 14:30 11/14/20 14:30 11/14/20 14:30 11/14/20 14:30 - General well developed, well nourished, no distress - Eyes PERRL - ENT normal pinna - Abdomen Abdomen: soft, non tender Bariatric Assessment & Plan Plan: Status post sleeve gastrectomy. Patient's GERD is minimal abnormalities or. She'll follow-up in 4 weeks. Bariatric Checklist Checklist: Plan: Checklist: EGD: 1. Hiatal hernia: 2. H. Pylori: HgbA1c: Vitamin D: Smoking: Never smoker Primary care physician referral: Dr. bniu Carlos ([facility]) Psychiatry clearance: Cardiology clearance: Sleep study: Diet journal: VTE risk score: VTE risk level: Rehab needs at discharge:
== END ==
LOC: BARWHC3 13:23
PROVIDERS: ATTEND Surgery
DX: Z98.84 Bariatric surgery status (principal); F41.9 Anxiety disorder, unspecified; F32.9 Major depressive disorder, single episode, unspecified; K21.9 Gastro-esophageal reflux disease without esophagitis
CPT/HCPCS: 99211

== ENCOUNTER → 2020-12-12 | Outpatient (CLI) | payer BC ==
[2020-12-12 14:07] VITALS: BP 136/79; PULSE 81; RESP 18; TEMP 98.3; BMI 30.7
--- NOTE | 2020-12-12 15:26 | P.HPBAR ---
Bariatric H&P - History & Physicial H&P Date: 12/12/20 History & Physicial: Visit/CC: follow up Patient initial contact: Initial weight: 122.47 kg Initial weight in pounds: 270.00 Height: 5 ft 6 in Initial BMI: 43.5 Last weight: Current weight: 86.183 kg Current weight in pounds: 190.00 Current BMI: 30.7 [place] body weight (based on NIH guidelines): 58.967 kg Excess body weight loss: 57.1% The patient is a 30 year-old F who presents for Bariatric Assessment. Patient presents today for sleeve gastrectomy follow-up. She is lesser 7 pounds. She feels good. She has a mild GERD. Past Medical History Past Medical History: No Reported History Additional Past Medical History / Comment(s): FREQUENT HEADACHES, LOWER BACK PAIN, STATES HAVING DIARRHEA , NAUSEA AND STOMACH PAIN., STATES CURRENT "COLD" WITH COUGH- PT TO NOTIFY DR Juan DAVILA. History of Any Multi-Drug Resistant Organisms: None Reported Past Surgical History: Bariatric Surgery, Section Additional Past Surgical History / Comment(s): EGD; sleeve 05/25/2020 Past Anesthesia/Blood Transfusion Reactions: No Reported Reaction Additional Past Anesthesia/Blood Transfusion Reaction / Comm: no hx blood transfusion Past Psychological History: Anxiety, Depression Smoking Status: Never smoker Past Alcohol Use History: Occasional Past Drug Use History: None Reported - Past Family History Mother Family Medical History: No Reported History Father Family Medical History: Hypertension Surgical - Exam Vital Signs Temp Pulse Resp BP 98.3 F 81 18 136/79 12/12/20 14:05 12/12/20 14:05 12/12/20 14:05 12/12/20 14:05 - General well developed, well nourished, no distress - Eyes PERRL - ENT normal pinna - Neck no masses - Respiratory normal expansion - Cardiovascular Rhythm: regular - Abdomen Abdomen: soft, non tender Bariatric Assessment & Plan Plan: Status post sleeve yesterday. Patient is minimal old observed. She'll follow- up in 4 weeks. Bariatric Checklist Checklist: Plan: Checklist: EGD: 1. Hiatal hernia: 2. H. Pylori: HgbA1c: Vitamin D: Smoking: Never smoker Primary care physician referral: Dr. binu Carlos ([facility]) Psychiatry clearance: Cardiology clearance: Sleep study: Diet journal: VTE risk score: VTE risk level: Rehab needs at discharge:
== END ==
LOC: BARWHC3 13:55
PROVIDERS: ATTEND Surgery
DX: E66.01 Morbid (severe) obesity due to excess calories (principal); Z68.30 Body mass index [BMI] 30.0-30.9, adult; Z98.84 Bariatric surgery status; F32.9 Major depressive disorder, single episode, unspecified
CPT/HCPCS: 99211

== ENCOUNTER → 2021-01-30 | Outpatient (CLI) | payer BC ==
[2021-01-30 15:36] VITALS: BMI 30.8
[2021-01-31 08:23] VITALS: BP 113/84; PULSE 76; TEMP 98
--- NOTE | 2021-02-07 12:26 | P.HPBAR ---
Bariatric H&P - History & Physicial H&P Date: 01/30/21 History & Physicial: Visit/CC: nine month follow up Patient initial contact: Initial weight: 122.47 kg Initial weight in pounds: 270.00 Height: 5 ft 6 in Initial BMI: 43.5 Last weight: Current weight: 86.636 kg Current weight in pounds: 191.00 Current BMI: 30.8 [place] body weight (based on NIH guidelines): 58.967 kg Excess body weight loss: 56.4% The patient is a 30 year-old F who presents for Bariatric Assessment. She presents today for sleeve gastrectomy follow-up. She's had some complaints of GERD. Past Medical History Past Medical History: No Reported History Additional Past Medical History / Comment(s): FREQUENT HEADACHES, LOWER BACK PAIN, STATES HAVING DIARRHEA , NAUSEA AND STOMACH PAIN., STATES CURRENT "COLD" WITH COUGH- PT TO NOTIFY DR Juan DAVILA. History of Any Multi-Drug Resistant Organisms: None Reported Past Surgical History: Bariatric Surgery, Section Additional Past Surgical History / Comment(s): EGD; sleeve 05/25/2020 Past Anesthesia/Blood Transfusion Reactions: No Reported Reaction Additional Past Anesthesia/Blood Transfusion Reaction / Comm: no hx blood transfusion Past Psychological History: Anxiety, Depression Smoking Status: Never smoker Past Alcohol Use History: Occasional Past Drug Use History: None Reported - Past Family History Mother Family Medical History: No Reported History Father Family Medical History: Hypertension Surgical - Exam Vital Signs Temp Pulse BP 98 F 76 113/84 01/30/21 15:01 01/30/21 15:01 01/30/21 15:01 - General well developed, well nourished, no distress - Eyes PERRL - ENT normal pinna - Neck no masses - Respiratory normal expansion - Cardiovascular Rhythm: regular - Abdomen Abdomen: soft, non tender Bariatric Assessment & Plan Plan: Status post sleeve gastrectomy. Patient's adnexal weight loss. She will follow-up in 3 months. Her GERD is minimal. Bariatric Checklist Checklist: Plan: Checklist: EGD: 1. Hiatal hernia: 2. H. Pylori: HgbA1c: Vitamin D: Smoking: Never smoker Primary care physician referral: Dr. binu Carlos ([facility]) Psychiatry clearance: Cardiology clearance: Sleep study: Diet journal: VTE risk score: VTE risk level: Rehab needs at discharge:
== END ==
LOC: BARWHC3 14:25
PROVIDERS: ATTEND Surgery
DX: Z09 Encounter for follow-up examination after completed treatment for conditions other than malignant neoplasm (principal); K21.9 Gastro-esophageal reflux disease without esophagitis; Z98.84 Bariatric surgery status; F41.9 Anxiety disorder, unspecified; F32.9 Major depressive disorder, single episode, unspecified; Z88.0 Allergy status to penicillin; Z88.1 Allergy status to other antibiotic agents
CPT/HCPCS: 97803; 99211

== ENCOUNTER → 2021-04-03 | Outpatient (CLI) | payer BC ==
[2021-04-03 14:24] VITALS: BP 111/75; PULSE 82; RESP 18; TEMP 98; BMI 30.3
== END ==
LOC: BARWHC3 13:58
PROVIDERS: ATTEND Surgery
DX: E66.01 Morbid (severe) obesity due to excess calories (principal); Z71.3 Dietary counseling and surveillance; Z68.30 Body mass index [BMI] 30.0-30.9, adult; Z88.0 Allergy status to penicillin; Z88.1 Allergy status to other antibiotic agents
CPT/HCPCS: 97803; 99211

== ENCOUNTER → 2022-02-05 | Outpatient (CLI) | payer BC ==
--- NOTE | 2022-02-05 14:59 | P.HPBAR ---
Bariatric H&P - History & Physicial H&P Date: 02/05/22 History & Physicial: Visit/CC: Patient initial contact: Initial weight: 122.47 kg Initial weight in pounds: Height: Initial BMI: Last weight: Current weight: Current weight in pounds: Current BMI: [place] body weight (based on NIH guidelines): Excess body weight loss: The patient is a 31 year-old F who presents for Bariatric Assessment. Patient presents today for bariatric follow-up. Her current weight today is 153 pounds. Sure last weight was 188 pounds. She is an excellent weight loss. She has a well-formed panniculus. She's had troubles with skin rashes at her panniculus. She wishes undergo panniculectomy. Past Medical History Past Medical History: No Reported History Additional Past Medical History / Comment(s): FREQUENT HEADACHES, LOWER BACK PAIN, STATES HAVING DIARRHEA , NAUSEA AND STOMACH PAIN., STATES CURRENT "COLD" WITH COUGH- PT TO NOTIFY DR Juan DAVILA. History of Any Multi-Drug Resistant Organisms: None Reported Past Surgical History: Bariatric Surgery, Section Additional Past Surgical History / Comment(s): EGD; sleeve 05/25/2020 Past Anesthesia/Blood Transfusion Reactions: No Reported Reaction Additional Past Anesthesia/Blood Transfusion Reaction / Comm: no hx blood transfusion Past Psychological History: Anxiety, Depression Smoking Status: Never smoker Past Alcohol Use History: Occasional Past Drug Use History: None Reported - Past Family History Mother Family Medical History: No Reported History Father Family Medical History: Hypertension Surgical - Exam - General well developed, well nourished, no distress - Eyes PERRL - ENT normal pinna - Neck no masses - Respiratory normal expansion - Cardiovascular Rhythm: regular - Abdomen Well-formed panniculus evidence of chronic skin irritation Abdomen: soft, non tender Bariatric Assessment & Plan Plan: Cholecystitis. Patient be scheduled for panniculectomy once insurance authorization is completed. Bariatric Checklist Checklist: Plan: Checklist: EGD: 1. Hiatal hernia: 2. H. Pylori: HgbA1c: Vitamin D: Smoking: Never smoker Primary care physician referral: Dr. binu Carlos ([facility]) Psychiatry clearance: Cardiology clearance: Sleep study: Diet journal: VTE risk score: VTE risk level: Rehab needs at discharge:
[2022-02-06 09:07] VITALS: BP 110/78; PULSE 86; RESP 16; TEMP 98.6; BMI 24.7
== END ==
LOC: BARWHC3 14:15
PROVIDERS: ATTEND Surgery
DX: Z09 Encounter for follow-up examination after completed treatment for conditions other than malignant neoplasm (principal); Z98.84 Bariatric surgery status; F41.9 Anxiety disorder, unspecified; F32.A Depression, unspecified
CPT/HCPCS: 99211

== ENCOUNTER → 2022-12-25 | Outpatient (CLI) | payer BC ==
--- NOTE | 2022-12-25 11:44 | CT ---
EXAMINATION TYPE: CT abdomen w con DATE OF EXAM: 12/25/2022 COMPARISON: 04/29/2017 HISTORY: 32-year-old female R10.11 epigastric pain, hx of gastric sleeve TECHNIQUE: Contiguous axial scanning of the abdomen following administration of 100 ml Isovue 300 IV contrast. Delayed images through the kidneys and coronal/sagittal reconstructions performed. CT DLP: 425.4 mGycm Automated exposure control for dose reduction was used. FINDINGS: Heart normal size without pericardial effusion. Lung bases clear without pleural effusion. There may be a tiny hiatal hernia present. Postsurgical changes of sleeve gastrectomy demonstrated. No focal liver lesion or biliary ductal dilatation. Portal venous system is patent. Suspected tiny 4 mm gallstone. No abnormal gallbladder distention. Adrenal glands, kidneys and pancreas within normal limits. Small 1 cm cyst lateral aspect of the sple en. No dilated small bowel, free fluid, or free air. No mesenteric or retroperitoneal lymphadenopathy. Normal appendix is visualized. Mild to moderate stool burden. No pericolonic inflammatory change. Dis harjit colon not assessed as the pelvis is not imaged. A borderline-sized 8 mm right lower quadrant mesenteric lymph node likely reactive/post inflammatory. Pelvis not imaged. Bones: Mild degenerative disc disease lower thoracic and lower lumbar spine. IMPRESSION: 1. STATUS POST SLEEVE GASTRECTOMY. THERE APPEARS TO BE A TINY HIATAL HERNIA PRESENT. 2. SUSPECT A TINY 4 MM GALLSTONE. NO INFLAMMATORY CHANGES BY CT. 3. MILD TO MODERATE STOOL BURDEN.
== END | disposition home or self-care (01) ==
LOC: RADCTMAIN 10:19
PROVIDERS: ATTEND Family Medicine
DX: R10.11 Right upper quadrant pain (principal); R19.5 Other fecal abnormalities; Z98.84 Bariatric surgery status
CPT/HCPCS: 74160; 36415; Q9967

== ENCOUNTER → 2024-09-22 | Outpatient (CLI) | payer BC ==
--- NOTE | 2024-09-22 08:43 | US ---
EXAMINATION TYPE: US pelvis complete transvag DATE OF EXAM: 09/22/2024 COMPARISON: NONE CLINICAL INDICATION: Female, 34 years old with history of R10.32 LT LOWER QUAD PAIN; pain patient too k preg test some positive and negative having Beta HCG today. TECHNIQUE: Transvaginal (TV) and Transabdominal (TA) . Doppler imaging: Not performed. FINDINGS: Date of LMP: unknown EXAM MEASUREMENTS: Uterus: 8.2 x 4.5 x 5.7 cm Endometrial Stripe: .6 cm Right Ovary: 2.3 x 2.4 x 2.4 cm Left Ovary: 2.1 x 1.8 x 2.1 cm 1. Uterus: Anteverted wnl 2. Endometrium: wnl 3. Right Ovary: wnl 4. Left Ovary: wnl 5. Bilateral Adnexa: wnl 6. Posterior cul-de-sac: wnl Unremarkable anteverted uterus without focal lesion identified. Normal-appearing endometrium. No defi nitive gestational sac identified. Both ovaries appear unremarkable. No free fluid. IMPRESSION: No ultrasound evidence for acute pelvic process. No definitive gestational sac identified. [facility], , 09/22/2024 8:41 AM
[2024-09-22 15:22] LABS: Basophils # (A) 0.03 X 10*3/uL (0.00-0.10); Basophils % (A) 0.7 %; Eosinophils # (A) 0.17 X 10*3/uL (0.04-0.35); Eosinophils % (A) 3.9 %; HCT 39.6 % (37.2-46.3); HGB 12.7 g/dL (12.0-15.0); Lymphocytes # (A) 1.07 X 10*3/uL (0.90-5.00); Lymphocytes % (A) 24.8 %; MCH 30.8 pg (27.0-32.0); MCHC 32.1 g/dL (32.0-37.0); MCV 95.9 FL (80.0-97.0); Mean Platelet Volume 10.8 FL (9.5-12.2); Monocytes # (A) 0.39 X 10*3/uL (0.20-1.00); NRBC Per 100 WBC 0 X 10*3/uL (0.00-0.01); Neutrophils # (A) 2.65 X 10*3/uL (1.80-7.70); Neutrophils % (A) 61.4 %; Platelet Count 262 X 10*3/uL (140-440); RBC 4.13 X 10*6/uL (4.10-5.20); RDW 13.6 % (11.5-14.5); WBC 4.32 X 10*3/uL (4.50-10.00)
[2024-09-22 17:41] LABS: ALT 15 U/L (8-44); AST 17 U/L (13-35); Albumin 4.3 g/dL (3.8-4.9); Alkaline Phosphatase 59 U/L (41-126); BUN/Creat Ratio 22.71 Ratio (12.00-20.00); Blood Urea Nitrogen 15.9 mg/dL (9.0-27.0); Calcium 9.1 mg/dL (8.7-10.3); Carbon Dioxide 26.2 mmol/L (21.6-31.8); Chloride 99 mmol/L (96-109); Globulin 3.3 g/dL (1.6-3.3); Glucose 95 mg/dL (70-110); Potassium 4.2 mmol/L (3.5-5.5); Sodium 135 mmol/L (135-145); Total Bilirubin 0.8 mg/dL (0.3-1.2); Total Protein 7.6 g/dL (6.2-8.2)
[2024-09-22 20:18] LABS: HCG,Quantitative Serum <3.0 mIU/mL (0.0-6.0)
== END | disposition home or self-care (01) ==
LOC: RADUSWWP 07:52
PROVIDERS: ATTEND Family Medicine
DX: R10.32 Left lower quadrant pain (principal); Z32.01 Encounter for pregnancy test, result positive
CPT/HCPCS: 76830; 76856; 80053; 84702; 85025